=== PATIENT | male | born 1950 | race Caucasian/White ===

== ENCOUNTER 2020-06-28 06:34 | Inpatient (IN) ==
--- NOTE | 2020-06-08 10:08 | PAT Medication Instructions ---
Medication Instructions Date of Service June 08, 2020 Home Medications aspirin 81 mg PO QAM atorvastatin 40 mg PO QAM calcium carbonate-vitamin D3 [Calcium + D] 1 tab PO DAILY cyanocobalamin (vitamin B-12) [Vitamin B-12] 1,000 mcg SUBLINGUAL QAM dapagliflozin [Farxiga] 10 mg PO QAM famotidine 40 mg PO BID finasteride 5 mg PO QAM lisinopril 10 mg PO QAM melatonin 5 mg PO HS meloxicam 7.5 mg PO QAM methocarbamol 750 mg PO QID PRN metoprolol succinate 25 mg PO QAM multivitamin 1 cap PO QAM omega 7-ekn-doq-fish oil [Fish Oil] 1 cap PO QAM oxycodone-acetaminophen 1 tab PO Q8H PRN ranolazine 500 mg PO BID sitagliptin-metformin [Sepumet] 1 tab PO BID vitamin E 1,000 unit PO QAM zaleplon 5 mg PO HS ASK your surgeon for instructions meloxicam 7.5 mg PO QAM STOP taking 2 weeks before surgery omega 4-liw-rms-fish oil [Fish Oil] 1 cap PO QAM vitamin E 1,000 unit PO QAM DO NOT take the morning of surgery calcium carbonate-vitamin D3 [Calcium + D] 1 tab PO DAILY cyanocobalamin (vitamin B-12) [Vitamin B-12] 1,000 mcg SUBLINGUAL QAM dapagliflozin [Farxiga] 10 mg PO QAM lisinopril 10 mg PO QAM methocarbamol 750 mg PO QID PRN multivitamin 1 cap PO QAM sitagliptin-metformin [Sepumet] 1 tab PO BID Take morning of surgery With a small sip of water, OTHERWISE NOTHING TO EAT OR DRINK AFTER MIDNIGHT: aspirin 81 mg PO QAM atorvastatin 40 mg PO QAM famotidine 40 mg PO BID finasteride 5 mg PO QAM metoprolol succinate 25 mg PO QAM oxycodone-acetaminophen 1 tab PO Q8H PRN (okay to take up to 4 hours prior to surgery if needed) ranolazine 500 mg PO BID Take evening before surgery famotidine 40 mg PO BID melatonin 5 mg PO HS methocarbamol 750 mg PO QID PRN (if needed) oxycodone-acetaminophen 1 tab PO Q8H PRN (if needed) ranolazine 500 mg PO BID sitagliptin-metformin [Sepumet] 1 tab PO BID zaleplon 5 mg PO HS Other Notes If you have any questions please call us at [phone] or [phone] or [phone] or [phone]
--- NOTE | 2020-06-09 13:58 | Anesthesiology Consultation ---
Date of Service June 09, 2020 Assessment & Plan (1) Encounter for pre-operative examination: Chart Review Chart Review: Pending: Refer to Additional Notes / Consult section (06/13 ECHO with updated cardio clearance, PCP clearance 06/14, preop Covid testing ) and Patient seen in Pre Admission Testing Awaiting ECHO scheduled 06/13/20 and surgeon ordered PCP clearance scheduled 06/14/20. - Check BSG AM DOS Per PAT visit 06/09/2020, patient resides in [facility]. Travels to [facility] for medical appointments. Uses mask. No known Covid positive contacts or Covid related symptoms. Educated patient to follow up with surgeon's office regarding Covid testing. Educated on importance of self quarantining, social distancing and wearing mask in public both for the patient and household contacts. Patient seen by cardiology 06/07/2020 = patient seen for preop evaluation prior to orthopedic surgery. " Over the past 30 days, there has been no active cardiovascular conditions... Cardiovascular risk factors include ischemic heart disease." Patient does not have renal failure, diabetes, or congestive heart failure. Last echo was 2013. Will obtain updated echo prior to surgery. " Clinically patient has been doing very well. He is limited by his orthopedic condition. Otherwise he is able to perform activities at 4 METS level. Therefore do not recommend stress testing at this time." " If no significant abnormalities on echo, then patient should proceed with planned surgery as a low cardiovascular risk candidate with no further testing." Cardio states addendum will be added after echocardiogram. Teaching & Discussion Pre-Anesthesia Teaching/Discussion Notes: Instructed NPO after midnight before surgery,except medications with 15 cc of water. Medication instructions provided according to the PAT guidelines. History Surgery Operation Date: 06/28/20 07:45 Proposed Procedures p L2-L3 Decompression Fusion, L3-S1 Hardware Removal, Possible L2-S1 Reinstrumentation, Spinal Cord Monitoring - Matt Ojeda, Height/Weight Height: 5 ft 9 in Weight: 81.1 kg Allergies Allergy/AdvReac Type Severity Reaction Status Date / Time contrast dye Allergy Intermediate heart cath Uncoded 06/07/20 09:17 dye - rash/hives Medications Home Medications Medication Instructions Recorded Confirmed Last Taken aspirin 81 mg PO QAM 06/07/20 06/07/20 Unknown atorvastatin 40 mg PO QAM 06/07/20 06/07/20 Unknown calcium carbonate-vitamin D3 1 tab PO DAILY 06/07/20 06/07/20 Unknown [Calcium + D] cyanocobalamin (vitamin B-12) 1,000 mcg SUBLINGUAL QAM 06/07/20 06/07/20 Unknown [Vitamin B-12] dapagliflozin [Farxiga] 10 mg PO QAM 06/07/20 06/07/20 Unknown famotidine 40 mg PO BID 06/07/20 06/07/20 Unknown finasteride 5 mg PO QAM 06/07/20 06/07/20 Unknown lisinopril 10 mg PO QAM 06/07/20 06/07/20 Unknown melatonin 5 mg PO 06/07/20 06/07/20 Unknown meloxicam 7.5 mg PO QAM 06/07/20 06/07/20 Unknown methocarbamol 750 mg PO QID PRN [facility] 06/07/20 06/07/20 Unknown metoprolol succinate 25 mg PO QAM 06/07/20 06/07/20 Unknown multivitamin 1 cap PO QAM 06/07/20 06/07/20 Unknown omega 7-lth-ysj-fish oil [Fish Oil] 1 cap PO QAM 06/07/20 06/07/20 Unknown oxycodone-acetaminophen 1 tab PO Q8H PRN 06/07/20 06/07/20 Unknown ranolazine 500 mg PO BID 06/07/20 06/07/20 Unknown sitagliptin-metformin [Janumet] 1 tab PO BID 06/07/20 06/07/20 Unknown vitamin E 1,000 unit PO QAM 06/07/20 06/07/20 Unknown zaleplon 5 mg PO 06/07/20 06/07/20 Unknown Past Medical History Medical History (Updated 06/10/20 @ 08:49 by Tessie Khan, PA-C) CAD (coronary artery disease) S/p stent 2012 to LAD Diabetes mellitus, type 2 Well controlled and stable GERD (gastroesophageal reflux disease) Well controlled and stable Hyperlipidemia Hypertension Insomnia Myocardial infarction 1990 (pt unsure of details); 2012- had LAD stent placed Osteoarthritis Exercise / Class Metabolic Activity II 4-5 Yardwork/Stairs/Walk up hill (one flight of stairs- no chest pain or SOB- limited activity due to back pain ) Past Surgical History Surgical History (Updated 06/10/20 @ 08:49 by Tessie Khan PA-C) History of foot surgery left torn tendon History of heart artery stent in 2013; unknown if stent placed with 1990 [place] History of lumbar fusion History of trigger finger both hands Hx of appendectomy Hx of arthroscopic knee surgery x 2 Hx of cardiac cath Per Dr. Pace (cardio note)- cath 2008 (medical management), 2013 cath (LAD STEFANIE placed). Specifics unknown regarding 1990 [place] Hx of colonoscopy Hx of hand surgery x4 right hand and on thumb Hx of hand surgery left hand Hx of lumbar discectomy Hx of repair of right rotator cuff Hx of tonsillectomy Past Anesthesia History No Hx of Anesthesia Complications (with exception to one episode with shoulder surgery- woke up during surgery ) and No Family Hx of Anesthesia Complications History of PONV No Hx of PONV and No Hx of Motion Sickness Social History Smoking Status: Never smoker Do You Dip or Chew Tobacco: No Hx Alcohol Use: Yes alcohol intake frequency: holidays/special occasions only Hx Substance Use: No substance use type: does not use Review of Systems Patient denies chest pain, shortness of breath, dyspnea on exertion, cough, wheezing, palpitations. No hx of seizures, stroke, apnea/snoring. No hx of blood clots or blood transfusions Physical Exam Vital Signs VITALS BP 125/77 P 70 TEMP 98.3 SP02 96% RESP 16 Constitutional no acute distress ENMT Mouth: no TMJ clicking Thyromental Distance: > or= 3.5 Finger Breadths (3.5) Mallampati Class: I Crowns to molars Neck neck extension not limited Respiratory normal respiratory effort; no respiratory distress Auscultation: lungs clear to auscultation bilaterally; no wheezes Cardiovascular Rate/Rhythm: regular rate and regular rhythm Heart Sounds: no murmur Vessels: no carotid bruit Musculoskeletal Spine: no pain with cervical ROM Neurologic moves all extremities Psychiatric Orientation: alert Testing Laboratory Results 06/09/20 14:20 06/09/20 14:20 PT 10.7 Seconds (9.0-12.0) 06/09/20 14:20 INR 1.0 (0.9-1.1) 06/09/20 14:20 APTT 28.0 Seconds (21.0-31.0) 06/09/20 14:20 Urine Color Yellow 06/09/20 14:20 Urine Appearance Clear (Clear) 06/09/20 14:20 Urine pH 5.0 (4.5-7.5) 06/09/20 14:20 Ur Specific [place] 1.039 (1.000-1.030) H 06/09/20 14:20 Urine Protein Negative (Negative) 06/09/20 14:20 Urine Glucose (UA) 3+ (Negative) H 06/09/20 14:20 Urine Ketones Trace (Negative) H 06/09/20 14:20 Urine Nitrite Negative (Negative) 06/09/20 14:20 Ur Leukocyte Esterase Negative (Negative) 06/09/20 14:20 Blood Type O Positive 06/09/20 14:20 Antibody Screen NEGATIVE 06/09/20 14:20 Electrocardiogram Date: 06/09/20 SR with PACs at 67 bpm. Low voltage QRS. Chest X-Ray Date: 06/09/20 Findings: + NAD Atelectasis is noted at the left lung base. Stress Test Date: 12/29/15 Resting EF: 60% Resting LV Function: normal Resting RWMA: + none Resting EKG showed SR, borderline low voltage complexes, poor R wave progression. Exercise stress EKG negative for ischema. Exercise stress ECHO is positive for ischemia of a small area of the apicoinferoseptal wall at a good workload. Good functional status- exercised to 10 METs. MPHR= 89% With exercise there appears to be HK of the apicoinferoseptal wall. (cardio aware of stress test results in note) Cardiac Catheterization Date: 12/16/12 LAD 80%- PTCA and stenting done with STEFANIE- reduced to 0% stenosis. LM= angiographically normal but short vessel. LCX= 20% Ramus= 60% RCA= 20% EF= 55%. No RWMA.
--- NOTE | 2020-06-09 14:42 | XRay Report ---
TWO VIEW CHEST CLINICAL HISTORY: Preoperative examination. FINDINGS: PA and lateral chest radiographs are obtained. No prior studies are available for compariso n at the time of dictation. The cardiomediastinal silhouette is unremarkable. Atelectasis is noted a t the left lung base. The lungs and pleural spaces are otherwise clear. There is no pneumothorax. The bony thorax appears intact. IMPRESSION: No active disease in the chest. ACT 112: Negative or not required by law. Electronically signed by: Alcon Mccord M.D. 06/09/2020 2:41 PM
[2020-06-09 15:32] LABS: Basophils # (auto) 0.01 K/uL (0-0.2); Basophils % (auto) 0.1 %; Eosinophils # (auto) 0.27 K/uL (0-0.5); Eosinophils % (auto) 3.8 %; Hematocrit (blood only) 42.8 % (42-52); Hemoglobin 14.7 g/dL (14.0-18.0); Immature Granulocytes # (auto) 0.01 K/uL (0.00-0.02); Immature Granulocytes % (auto) 0.1 %; Lymphocytes # (auto) 2.41 K/uL (1.2-3.4); Lymphocytes % (auto) 34.1 %; Mean Corpuscular Hgb Conc 34.3 g/dL (32-36); Mean Platelet Volume 9.7 fL (7.4-10.4); Monocytes # (auto) 0.75 K/uL (0.11-0.59); Monocytes % (auto) 10.6 %; Neutrophils # (auto) 3.61 K/uL (1.4-6.5); Neutrophils % (auto) 51.3 %; Platelet Count 237 K/uL (130-400); RDW Coefficient of Variation 12.8 % (11.5-14.5); RDW Standard Deviation 43.8 fL (36.4-46.3); White Blood Count 7.06 K/uL (4.8-10.8)
[2020-06-09 15:38] LABS: Appearance Urine Clear (Clear); Bilirubin Urine Negative (Negative); Blood Urine Negative (Negative); Color Urine Yellow; Glucose Urine UA 3+ (Negative); Ketones Urine Trace (Negative); Leukocyte Esterase Urine Negative (Negative); Nitrite Urine Negative (Negative); Protein Urine Negative (Negative); Specific Gravity Urine 1.039 (1.000-1.030); Urobilinogen Urine Negative (Negative)
[2020-06-09 15:49] LABS: Prothrombin Time 10.7 Seconds (9.0-12.0)
[2020-06-09 16:02] LABS: BUN Creatinine Ratio 20.8 (10-20); Calcium 9.6 mg/dl (8.5-10.1); Creatinine Clr Calc Pharmacy 87.4 ml/min; Est GFR (African American) 106.1; Est GFR (Non-African American) 91.5; Potassium 4.6 mmol/L (3.5-5.1)
--- NOTE | 2020-06-09 19:06 | Electrocardiogram Report ---
Test Reason : Blood Pressure : / mmHG Vent. Rate : 067 BPM Atrial Rate : 067 BPM P-R Int : 164 ms QRS Dur : 080 ms QT Int : 414 ms P-R-T Axes : 035 033 053 degrees QTc Int : 437 ms Sinus rhythm with Premature atrial complexes Low voltage QRS Borderline ECG No previous ECGs available Confirmed by Lexx Abrams ([id number]) on 06/09/2020 7:06:05 PM Referred By: Matt Ojeda Confirmed By:Yo Abrams
[~2020-06-28 06:34] MED LIST: ACETAMINOPHEN 500 MG TAB PO SCH; CEFAZOLIN 2000MG 2,000 MG/15 ML SYR IV SCH; CeleBREX 200 MG CAP PO SCH; GABAPENTIN 300 MG CAP PO SCH; LR 15ML/HR IV SCH
[2020-06-28] MEDS ORDERED: PROPOFOL IV EMULSION 10 MG/ML 20 ML VIAL IV ONE (07:03)
[2020-06-28] MEDS ORDERED: ONDANSETRON INJ 2 MG/ML 2 ML VIAL ONE ×2 (07:03→08:10)
[2020-06-28] MEDS ORDERED: ROCURONIUM BROMIDE 10 MG/ML 5 ML VIAL IV ONE ×2 (07:03→08:48)
[2020-06-28] MEDS ORDERED: MIDAZOLAM HCL 1 MG/ML 2ML VIAL ONE (07:03)
[2020-06-28] MEDS ORDERED: LIDOCAINE HCL 2% 2 ML VIAL/AMP(20MG/ML) INFIL ONE (07:03)
[2020-06-28] MEDS ORDERED: DEXAMETHASONE SOD INJ 4 MG/ML VIAL ONE (07:03)
[2020-06-28] MEDS ORDERED: HYDROmorphone INJ 2 MG/ML SYR/VIAL ONE (07:03)
[2020-06-28] MEDS ORDERED: BACITRACIN INJ 50,000 UNIT VIAL ONE (07:12)
[2020-06-28] MEDS ORDERED: BUPIVACAINE/EPINEPHRINE 0.25% 1:200,000 30 ML VIAL ONE (07:12)
[2020-06-28] MEDS ORDERED: ALBUMIN HUMAN 5% 12.5 GM/250 ML VIAL IV ONE ×2 (07:14→07:35)
[2020-06-28] MEDS ORDERED: SUGAMMADEX SODIUM 200 MG/2 ML VIAL IV ONE (07:14)
[2020-06-28] MEDS ORDERED: ONDANSETRON INJ 2 MG/ML 2 ML VIAL IV PRN ×2 (07:18→11:39)
[2020-06-28] MEDS ORDERED: HYDROmorphone INJ 1 MG/ML SYRINGE IV PRN (07:18)
[2020-06-28] MEDS ORDERED: ATROPINE SULFATE 0.1 MG/ML 10ML SYR IV PRN (07:18)
[2020-06-28] MEDS ORDERED: ePHEDrine sulfate 50 MG/ML AMP IV PRN (07:18)
[2020-06-28] MEDS ORDERED: SODIUM CHLORIDE 0.9% 250 ML IV PRN (07:28)
--- NOTE | 2020-06-28 07:29 | History & Physical Bridge Note ---
Date of Service June 28, 2020 History & Physical Bridge Note I have examined the patient, reviewed the History & Physical and in the interval since the performance of the History & Physical I have noted the following changes of clinical significance: no changes noted
--- NOTE | 2020-06-28 07:30 | History & Physical Report ---
Date of Service June 28, 2020 Assessment & Plan (1) Neurogenic claudication due to lumbar spinal stenosis: Admission and Anticipated Discharge Date Admission Date: L2-L3 decompression fusion, L3-S1 hardware removal, possible L2- S1 re-instrumentation History of Present Illness Chief Complaint: Back and bilateral leg pain Primary Care Provider: Arias Peter MD This is a 69-year-old male who presents with chronic persistent back and leg pain. Failed extensive course of nonoperative care is here for surgical invention. Allergies Allergy/AdvReac Type Severity Reaction Status Date / Time contrast dye Allergy Intermediate heart cath Uncoded 06/28/20 06:54 dye - rash/hives Home Medications Home Medications Medication Instructions Recorded Confirmed Type aspirin 81 mg PO QAM 06/07/20 06/28/20 History atorvastatin 40 mg PO QAM 06/07/20 06/28/20 History calcium carbonate-vitamin D3 1 tab PO DAILY 06/07/20 06/28/20 History [Calcium + D] cyanocobalamin (vitamin B-12) 1,000 mcg SUBLINGUAL QAM 06/07/20 06/28/20 History [Vitamin B-12] dapagliflozin [Farxiga] 10 mg PO QAM 06/07/20 06/28/20 History famotidine 40 mg PO BID 06/07/20 06/28/20 History finasteride 5 mg PO QAM 06/07/20 06/28/20 History lisinopril 10 mg PO QAM 06/07/20 06/28/20 History melatonin 5 mg PO HS 06/07/20 06/28/20 History meloxicam 7.5 mg PO QAM 06/07/20 06/28/20 History methocarbamol 750 mg PO QID PRN MDD pa 06/07/20 06/28/20 History metoprolol succinate 25 mg PO QAM 06/07/20 06/28/20 History multivitamin 1 cap PO QAM 06/07/20 06/28/20 History omega 7-wkz-prn-fish oil [Fish Oil] 1 cap PO QAM 06/07/20 06/28/20 History oxycodone-acetaminophen 1 tab PO Q8H PRN 06/07/20 06/28/20 History ranolazine 500 mg PO BID 06/07/20 06/28/20 History sitagliptin-metformin [Janumet] 1 tab PO BID 06/07/20 06/28/20 History vitamin E 1,000 unit PO QAM 06/07/20 06/28/20 History zaleplon 5 mg PO HS 06/07/20 06/28/20 History Past Med/Surg History Medical History (Updated 06/28/20 @ 07:30 by Matt Ojeda, ) CAD (coronary artery disease) S/p stent 2013 to LAD Diabetes mellitus, type 2 Well controlled and stable GERD (gastroesophageal reflux disease) Well controlled and stable Hyperlipidemia Hypertension Insomnia Myocardial infarction 1990 (pt unsure of details); 2013- had LAD stent placed Osteoarthritis Surgical History History of foot surgery left torn tendon History of heart artery stent in 2012; unknown if stent placed with 1990 [place] History of lumbar fusion History of trigger finger both hands Hx of appendectomy Hx of arthroscopic knee surgery x 2 Hx of cardiac cath Per Dr. Pace (cardio note)- cath 2008 (medical management), 2012 cath (LAD STEFANIE placed). Specifics unknown regarding 1990 [place] Hx of colonoscopy Hx of hand surgery x4 right hand and on thumb Hx of hand surgery left hand Hx of lumbar discectomy Hx of repair of right rotator cuff Hx of tonsillectomy Social History Smoking Status: Never smoker Second Hand Exposure: No; Do You Dip or Chew Tobacco: No; Tobacco Cessation Education Requested by Patient: No Hx Alcohol Use: Yes Hx Substance Use: No Preferred Language: Azeri Communication Ability: Effective Landscape Manager Required: No Beliefs That Will Affect Care: None Current Living Situation: Family Current Living Situation Comment: brother ocas Other Information That Helps Us Care for You: No Feels Safe at Home: Yes Safety Concerns: Feels Safe At This Time Assistive Devices: Glasses Physical Exam Physical Exam: Patient is alert and oriented neurologically intact. Heart regular rate and rhythm. Lungs clear to auscultation. Results & Data ([facility]) Vital Signs (Past 12 Hours) Vital Signs Temp Pulse Resp BP Pulse Ox 06/28/20 06:55 36.8 C 80 16 140/79 98
[2020-06-28] MEDS ORDERED: ePHEDrine sulfate 50 MG/ML SYR ONE (08:39)
[2020-06-28] MEDS ORDERED: PHENYLEPHRINE 100MCG/ML 5ML SYR ONE (08:44)
[2020-06-28 09:50] LABS: Basophils # (auto) 0.01 K/uL (0-0.2); Basophils % (auto) 0.1 %; Eosinophils # (auto) 0.13 K/uL (0-0.5); Eosinophils % (auto) 1.2 %; Hematocrit (blood only) 33.8 % (42-52); Hemoglobin 11.5 g/dL (14.0-18.0); Immature Granulocytes # (auto) 0.02 K/uL (0.00-0.02); Immature Granulocytes % (auto) 0.2 %; Lymphocytes # (auto) 2.01 K/uL (1.2-3.4); Lymphocytes % (auto) 19.2 %; Mean Corpuscular Hemoglobin 31.3 pg (25-34); Mean Corpuscular Volume 91.8 fL (80-100); Monocytes # (auto) 0.46 K/uL (0.11-0.59); Monocytes % (auto) 4.4 %; Neutrophils # (auto) 7.82 K/uL (1.4-6.5); Neutrophils % (auto) 74.9 %; Platelet Count 204 K/uL (130-400); RDW Coefficient of Variation 12.5 % (11.5-14.5); RDW Standard Deviation 42.5 fL (36.4-46.3); Red Blood Count 3.68 M/uL (4.7-6.1); White Blood Count 10.45 K/uL (4.8-10.8)
[2020-06-28] MEDS ORDERED: FLOSEAL HEMOSTATIC MATRIX 10ML TOP ONE (09:58)
--- NOTE | 2020-06-28 10:18 | Operative Report ---
Post Operative Report Pre & Post Diagnosis Operation Date: 06/28/20 07:45 Pre-Op Diagnosis: Neurogenic claudication due to lumbar spinal stenosis Post-Op Diagnosis: Neurogenic claudication due to lumbar spinal stenosis I identified the patient and participated in the time-out.: Yes Procedure Operation Date: 06/28/20 07:45 Actual Procedures #1 removal of posterior segmental instrumentation L3-S1. #2 exploration of fusion L3-S1. #3 lumbar decompression with bilateral medial facet foraminotomies L1-2 and L2-3. #4 posterior spinal fusion L2-3. #5 placed a posterior instrumentation L2-3 L3-4. #6 interbody fusion L2-3. #7 placed a peek cage 11 x 26 mm L2-3. #8 placement locally harvested morselized autograft in the posterior gutters. #9 placement of his collagen sponge by Master graft in the posterior lateral gutters and osteopenia but a space. Surgeon Matt Ojeda, DO Proof Operator Daren Foster Estimated Blood Loss 1,100 Findings Consistent with Post-Op Diagnosis Specimens None Indications This is a 69-year-old male who presents with vomiting diagnosis after failing course of nonoperative care elected undergo the above-mentioned procedure. Description of Procedure Patient met with identified informed consent obtained. Patient was then taken to the operative suite underwent patient placed in the prone position on Tobin table on top of the Vinicius frame. All bony prominences well-padded I suspected to ensure no external pressure placed upon the bed this point the lumbar spine is prepped and draped in a sterile fashion. Sharp dissection with the assistance of a cartilage from down to exposing the lamina and transverse processes of L2 and the instrumentation at L3-L4-L5 and S1 levels bilaterally. Then proceeded move the hardware bilaterally explored the fusion mass noted to be mature and intact. I did retain the left S1 pedicle screw as it was unable to be removed without greater bony destruction. I then performed a complete laminectomy of L2 partial laminectomy of L1 from a caudal cephalad fashion including bilateral medial facetectomy and foraminotomies addressing severe spinal stenosis. Pedicle screw was then placed in L2-L3-L4 bilaterally with assistance of fluoroscopy and process miguelina placed. Bilateral transfemoral approach and left the discectomy was performed and patient could do subcortical bone and a 11 x 26 mm cage filled with osteoma graft optimization. Rods and locked in accommodation bilaterally. The transverse processes of L2-L3-L4 producing cortical bleeding bone. Infuse collagen sponge mass graft local autograft was placed in the posterior gutters. 15 round BETTY drain inserted. The incision was then closed with 1 Vicryl fascia 2-0 Vicryl subcutaneously and 4 Monocryl for fascial closure. Steri-Strips dressings placed. Patient will continue to PACU stable condition. Please note spinal cord monitoring was utilized at the procedure no changes noted. Kristi Foster was present throughout the entire surgery and all the patient positioning complex portions of the surgery and final skin closure. I attest to the content of the Intraoperative Record and any orders documented therein. Any exceptions are noted below.
--- NOTE | 2020-06-28 10:52 | Fluoroscopy Report ---
FL lumbar spine 2-3V CLINICAL HISTORY: L2-L3 DECOMP/FUSION L3-S1 REMOVAL COMPARISON STUDY: FLUOROSCOPY TIME: 15 seconds. NUMBER OF FLUOROSCOPIC IMAGES: 2 FINDINGS: 2 intraoperative fluoroscopic spot images are provided for interpretation. These reveal nilam dence of an L2-3 discectomy and interbody fusion. There is also evidence for an L4-5 discectomy and i nterbody fusion. There is evidence for an L2-L4 fusion with posterior pedicle screws and rods. An ini tial lateral view, a metallic cross link hardware pieces visualized. This was apparently removed afte r the radiograph was taken. IMPRESSION: Intraoperative fluoroscopic spot images demonstrating an L2-4 spinal decompression and f usion. ACT 112: Negative or not required by law. Electronically signed by: Kwame Whelan M.D. 06/28/2020 10:51 AM
[2020-06-28] MEDS: fentaNYL citrate 100 MCG/2 ML VIAL IV PRN ×3 (11:00→11:10)
[2020-06-28 11:01] LABS: Basophils # (auto) 0.01 K/uL (0-0.2); Basophils % (auto) 0.1 %; Eosinophils # (auto) 0.05 K/uL (0-0.5); Eosinophils % (auto) 0.5 %; Hematocrit (blood only) 34.5 % (42-52); Hemoglobin 11.6 g/dL (14.0-18.0); Immature Granulocytes # (auto) 0.09 K/uL (0.00-0.02); Immature Granulocytes % (auto) 0.9 %; Lymphocytes # (auto) 1.31 K/uL (1.2-3.4); Lymphocytes % (auto) 12.5 %; Mean Corpuscular Volume 92.2 fL (80-100); Mean Platelet Volume 9.1 fL (7.4-10.4); Monocytes # (auto) 0.18 K/uL (0.11-0.59); Monocytes % (auto) 1.7 %; Neutrophils # (auto) 8.88 K/uL (1.4-6.5); Neutrophils % (auto) 84.3 %; Platelet Count 209 K/uL (130-400); RDW Coefficient of Variation 12.5 % (11.5-14.5); RDW Standard Deviation 42.7 fL (36.4-46.3); Red Blood Count 3.74 M/uL (4.7-6.1); White Blood Count 10.52 K/uL (4.8-10.8)
--- NOTE | 2020-06-28 11:01 | Anesthesiology Progress Note ---
Date of Service June 28, 2020 Anesthesia Post Procedure Vital Signs Vital Signs: Temp Pulse Pulse Resp BP BP Pulse Ox 06/28/20 10:55 89 12 135/80 99 06/28/20 10:45 87 13 129/77 99 06/28/20 10:36 36.9 C 91 H 10 L 141/80 H 98 06/28/20 06:55 36.8 C 80 16 140/79 98 Pain Intensity Lower Back: Pain Intensity: 4 Transfer of Care Handoff Completed per policy Notes Mental Status: alert / awake / arousable and participated in evaluation Patient Amnestic to Procedure: Yes Nausea / Vomiting: adequately controlled Pain: adequately controlled Airway Patency, RR, SpO2: stable & adequate BP & HR: stable & adequate Hydration State: stable & adequate Anesthetic Complications: no major complications apparent and Pt Satisfied with anesthetic care
[2020-06-28 11:09] LABS: Mean Corpuscular Hgb Conc 33.6 g/dL (32-36)
[2020-06-28] MEDS ORDERED: MAGNESIUM HYDROXIDE SUSP 30 ML UDC PO PRN (11:39)
[2020-06-28] MEDS ORDERED: HYDROmorphone INJ 0.5 MG/0.5 ML SYR IV PRN (11:39)
[2020-06-28] MEDS ORDERED: DO NOT ADMINISTER PNEUMOCOCCAL VACCINE PRN (11:39)
[2020-06-28] MEDS ORDERED: FAMOTIDINE 20 MG TAB PO PRN (11:39)
[2020-06-28] MEDS ORDERED: ACETAMINOPHEN 500 MG TAB PO PRN (11:39)
[2020-06-28] MEDS ORDERED: METOCLOPRAMIDE HCL INJ 5 MG/ML 2 ML VIAL IV PRN (11:39)
[2020-06-28] MEDS ORDERED: bisacodyL 10 MG SUPP PR PRN (11:39)
[2020-06-28] MEDS ORDERED: TRAMADOL HCL 50 MG TABLET PO PRN (11:39)
[2020-06-28] MEDS ORDERED: SOD PHOSPHATE/SOD BIPHOSPHATE ENEMA 132 ML BTL PR PRN (11:39)
[2020-06-28] MEDS ORDERED: ACETAMINOPHEN 1,000 MG/100 ML VIAL IV PRN (11:39)
[2020-06-28] MEDS ORDERED: METHOCARBAMOL 750 MG TABLET PO PRN (11:39)
[2020-06-28] MEDS ORDERED: ONDANSETRON 4 MG OD TAB PO PRN (11:39)
[2020-06-28] MEDS ORDERED: NALOXONE HCL 0.4 MG/1 ML VIAL/CARP IV PRN (11:39)
[2020-06-28] MEDS ORDERED: DO NOT ADMINISTER FLU VACCINE PRN (11:39)
[2020-06-28] MEDS ORDERED: ALUMINUM/MAGNESIUM SUSP 30 ML UDC PO PRN (11:39)
[2020-06-28] MEDS ORDERED: PROMETHAZINE HCL 12.5 MG in SODIUM CHLORIDE 0.9% 50 ML IV PRN (11:39)
[2020-06-28] MEDS ORDERED: LORazepam 0.5 MG/1 ML VIAL IV PRN (11:39)
[2020-06-28] MEDS ORDERED: LORazepam 0.5 MG TAB PO PRN (11:39)
[2020-06-28] MEDS ORDERED: GLUCOSE 40% GEL 15 GM TUBE PO PRN (11:57)
[2020-06-28] MEDS ORDERED: GLUCAGON FOR INJ 1 MG VIAL SQ PRN (11:57)
[2020-06-28] MEDS ORDERED: GLUCOSE 10 TABS/TUBE PO PRN (11:57)
[2020-06-28] MEDS ORDERED: DEXTROSE 50% 50 ML SYRINGE IV PRN (11:57)
[2020-06-28] MEDS ORDERED: CARBOHYDRATES FOR HYPOGLYCEMIA PO PRN (11:57)
[2020-06-28] MEDS ORDERED: PHARMACY GLYCEMIC MGMT CONSULT PRN (12:02)
[2020-06-28] MEDS ORDERED: HYDROmorphone INJ 1 MG/ML SYRINGE ONE (12:41)
[2020-06-28] MEDS: SODIUM CHLORIDE 0.9% 1000ML 1,000 ML IV SCH ×2 (12:42→20:13)
[2020-06-28] MEDS ORDERED: INSULIN HUMAN NPH SC ONE (13:00)
--- NOTE | 2020-06-28 13:26 | Hospitalist Consultation ---
Date of Consultation June 28, 2020 Assessment & Plan (1) S/P spinal surgery: This is a 69-year-old male with PMH of hypertension, CAD, HLD, BPH and other medical problems listed below who is POD#0 s/p L2L3 lumbar decompression and fusion with interbody cage by Dr. Ojeda. -POD#0 s/p L2L3 lumbar decompression and fusion with interbody cage by Dr. Ojeda -Pt is doing well post-operatively -Per ortho for pain control, wound care, anticoagulation and activities -Continue incentive spirometry, PT/OT when appropriate (2) Acute blood loss anemia: Significant EBL of 1,100ml recorded. Preop hemoglobin of 14.7 with postop hemoglobin 11.5 -Denies any lightheadedness, visual changes, chest pain or palpitations at this time. BP 98/66 -monitor closely, fall precautions -Increased IV fluid rate 125 ml/hr -Repeat H&H at 1500 -Type and crossed with 2 units PRBCs held. Plan to transfuse for hemoglobin <8 (3) CAD (coronary artery disease): Stable. No chest pain. Preop 2D echo on 06/13/2028 showed normal left ventricular systolic function with preserved EF of 60%. Continue aspirin, statin and metoprolol succinate with hold parameters (4) Hypertension: Hypotensive in setting of significant blood loss anemia. BP currently 98/66 -Plan to hold lisinopril tomorrow morning. Continue metoprolol succinate with hold parameters (5) Hyperlipidemia: Continue statin (6) Diabetes mellitus, type II: Unknown a1c - pending for tomorrow AM -pt reports A1c below 7 on oral meds -Hold home agents. Post op hgb >200 -Glycemic consult placed -BSG AC HS (7) GERD (gastroesophageal reflux disease): Continue PPI (8) Insomnia: Holding Zaleplon while receiving pain medication post operatively PCP: [place] Dispo: Per primary service Patient seen in collaboration with Dr. Coleman. Please see addendum. Thank you for this consultation. We will follow the patient with you during their hospital stay. You can reach a member of the [facility] 22/04 via pager @ [phone]. Supervising Physician Co-Signing Physician Notes Patient was seen and examined by me, care coordinated with Soila Phipps PA-C. Please see her note above for further details. Pt is 69 y/o male hx of DM type 2 (per pt, A1c below 7 on oral meds), hypertension, CAD, HLD, BPH and other medical problems who is POD#0 s/p L2L3 lumbar decompression and fusion with interbody cage by Dr. Ojeda. Patient is feeling well postoperatively, except for some mild surgical site pain. Denies any paresthesias or pain in the lower extremities. Denies any fever or chills. No lightheadedness, chest pain, palpitations, shortness of breath, or dizziness. Rios catheter is draining urine. Patient is currently lying in bed, in no acute distress. He is alert and oriented and answering questions appropriately. Lung sounds are clear to auscultation bilaterally, no wheezing rhonchi or crackles noted. Heart sounds regular, no murmur noted. Abdomen is soft, nontender, nondistended, positive bowel sounds. Patient has no sensory loss, moves extremities spontaneously. Continue to closely monitor blood pressure and heart rate, repeat H&H ordered. Continue IV fluids 125/h, depending on H&H, will decide if blood transfusion needed. We will continue to closely monitor. Lois Coleman MD History of Present Illness Reason for Consultation: Postop medical management Attending Physician: Matt Ojeda DO History of Present Illness This is a 69-year-old male with PMH of hypertension, CAD, HLD, BPH and other medical problems listed below who is POD#0 s/p L2L3 lumbar decompression and fusion with interbody cage by Dr. Ojeda. Patient is feeling well postoperatively. Has some mild surgical site pain. Denies any paresthesias or pain in the lower extremities. Denies any fever or chills. No visual changes, lightheadedness, chest pain, palpitations or shortness of breath. No nausea vomiting or abdominal pain. Has Rios catheter in draining urine. Last bowel movement was yesterday. PCP is Dr. Peter. 2D echo on 06/13/2028 showed normal left ventricular systolic function with preserved EF of 60%. Allergies Allergy/AdvReac Type Severity Reaction Status Date / Time Iodinated Contrast Media Allergy Intermediate Hives Verified 06/28/20 12:16 Home Medications Home Medications Medication Instructions Recorded Confirmed Type aspirin 81 mg PO QAM 06/07/20 06/28/20 History atorvastatin 40 mg PO QAM 06/07/20 06/28/20 History calcium carbonate-vitamin D3 1 tab PO DAILY 06/07/20 06/28/20 History [Calcium + D] cyanocobalamin (vitamin B-12) 1,000 mcg SUBLINGUAL QAM 06/07/20 06/28/20 History [Vitamin B-12] dapagliflozin [Farxiga] 10 mg PO QAM 06/07/20 06/28/20 History famotidine 40 mg PO BID 06/07/20 06/28/20 History finasteride 5 mg PO QAM 06/07/20 06/28/20 History lisinopril 10 mg PO QAM 06/07/20 06/28/20 History melatonin 5 mg PO HS 06/07/20 06/28/20 History meloxicam 7.5 mg PO QAM 06/07/20 06/28/20 History methocarbamol 750 mg PO QID PRN [facility] 06/07/20 06/28/20 History metoprolol succinate 25 mg PO QAM 06/07/20 06/28/20 History multivitamin 1 cap PO QAM 06/07/20 06/28/20 History omega 5-dcc-dxw-fish oil [Fish Oil] 1 cap PO QAM 06/07/20 06/28/20 History oxycodone-acetaminophen 1 tab PO Q8H PRN 06/07/20 06/28/20 History ranolazine 500 mg PO BID 06/07/20 06/28/20 History sitagliptin-metformin [Janumet] 1 tab PO BID 06/07/20 06/28/20 History vitamin E 1,000 unit PO QAM 06/07/20 06/28/20 History zaleplon 5 mg PO HS 06/07/20 06/28/20 History Patient History Medical History (Updated 06/28/20 @ 15:02 by Soila Phipps PA-C) CAD (coronary artery disease) S/p stent 2012 to LAD Diabetes mellitus, type II GERD (gastroesophageal reflux disease) Hyperlipidemia Hypertension Insomnia Myocardial infarction 1990 (pt unsure of details); 2012- had LAD stent placed Osteoarthritis Surgical History (Updated 06/28/20 @ 15:02 by Soila Phipps PA-C) History of foot surgery left torn tendon History of heart artery stent in 2012; unknown if stent placed with 1990 SC History of lumbar fusion History of trigger finger both hands Hx of appendectomy Hx of arthroscopic knee surgery x 2 Hx of cardiac cath Per Dr. Pace (cardio note)- cath 2008 (medical management), 2012 cath (LAD STEFANIE placed). Specifics unknown regarding 1990 SC Hx of colonoscopy Hx of hand surgery x4 right hand and on thumb Hx of hand surgery left hand Hx of lumbar discectomy Hx of repair of right rotator cuff Hx of tonsillectomy Family History Other Heart disease Hypertension Social History Smoking Status: Never smoker Second Hand Exposure: No; Do You Dip or Chew Tobacco: No; Tobacco Cessation Education Requested by Patient: No Hx Alcohol Use: Yes Hx Substance Use: No Preferred Language: Israeli Communication Ability: Effective Port Purser Required: No Beliefs That Will Affect Care: None marital status: Single Current Living Situation: Family Current Living Situation Comment: brother ocas Other Information That Helps Us Care for You: No Feels Safe at Home: Yes Safety Concerns: Feels Safe At This Time Assistive Devices: Glasses Review of Systems Review of Systems: At least ten systems reviewed and negative except as noted in the HPI. Physical Exam Physical Exam: General Appearance: WD/WN, vitals as above, NAD, sitting up in bed, pleasant, conversing easily Head: normocephalic, atraumatic Eyes: normal inspection, PERRL, conjunctivae normal, anicteric sclerae ENT: external ear and nose normal, oropharynx normal Neck: normal visual inspection, trachea midline, no thyromegaly Respiratory: normal respiratory effort, lungs clear to auscultation, no wheeze, rales, rhonchi Cardiovascular: regular rate, rhythm, no murmur, normal peripheral pulses, no BLE edema Chest: normal inspection of chest Abdomen/GI: normal bowel sounds, soft, nontender, no hepatosplenomegaly Extremities/Musculoskeletal: + Lumbosacral dressing c/d/i. BETTY drain visualized. No cyanosis or clubbing, extremities motor strength 5/5 Neurologic: PERRL, CN's II-XI intact bilaterally and moves all extremities Psychiatric: A+Ox3, euthymic affect Skin: no rashes, normal color, warm/dry Results & Data Results & Data ([facility]) Vital Signs (Past 12 Hours) Vital Signs Temp Pulse Pulse Resp BP BP Pulse Ox 06/28/20 12:45 36.6 C 86 16 109/70 97 06/28/20 12:10 36.5 C 85 16 108/70 96 06/28/20 11:40 36.9 C 84 15 117/72 96 06/28/20 11:15 36.7 C 84 14 138/75 96 06/28/20 11:05 85 15 136/75 96 06/28/20 10:55 89 12 135/80 99 06/28/20 10:45 87 13 129/77 99 06/28/20 10:36 36.9 C 91 H 10 L 141/80 H 98 06/28/20 06:55 36.8 C 80 16 140/79 98 Laboratory Results Short CBC 06/28/20 06/28/20 Range/Units 09:40 10:43 WBC 10.45 10.52 (4.8-10.8) K/uL Hgb 11.5 L 11.6 L (14.0-18.0) g/dL Hct 33.8 L 34.5 L (42-52) % Plt Count 204 209 (130-400) K/uL
--- NOTE | 2020-06-28 13:55 | Pharmacy Report ---
Glycemic Control Consultation - Date of Service June 28, 2020 - Scope Scope: Glycemic Pharmacist consulted for glycemic control and to write orders per [facility] inpatient glycemic control protocol. - Objective Weight: 81.1 kg Accuchecks BSG (last 24hrs): 06/28/20 06/28/20 06/28/20 06:54 10:40 11:40 POC Glucose 136 H 176 H 218 H - Recent Pertinent Medications Outpatient Anti-diabetic Regimen: * FARXIGA 10 MG DAILY * JANUMET 1 TAB BID Risk Factors for Insulin Resistance: * Steroids: DEXAMETHASONE 8 MG IV INTRAOP * Recent Surgery: POD 0 FOR LUMABAR SURGERY * Diet: T2DM- CLEAR LIQUID - Assessment & Plan Assessment & Plan: ASSESSMENT: * Mr Cid is a 69 y/o M with PMH of T2DM (unknown control - on 3 oral medications) who presents for lumbar surgery. Fasting BSG was 136 mg/dL. Patient received IV dexamethasone 8 mg in OR * Provide 0.4 units/kg of NPH or 30 units to cover for steroid hyperglycemia. Weight-based stress of 3 Novolog ordered along with overnight checks. * Pt is maintained on oral antidiabetic agents as an outpatient * Oral agents are not recommended for inpatient use d/t drug interactions, changing PO intake, and difficulty titrating for acute hyper/hypoglycemia. ADA recommends re-initiating outpatient oral agents 1-2 days prior to discharge if/when appropriate if they were held on admission. * ADA & AACE recommend a goal blood sugar range 140-180 mg/dl for the majority of critically ill & non-critically ill patients. However, more stringent targets may be selected in individual cases. Will utilize more stringent goal of 110-140mg/dl based on patient age & comorbidities. Additionally, tighter glycemic control is warranted to facilitate wound healing. PLAN FOR INPATIENT GLYCEMIC CONTROL: * Holding outpatient oral diabetes medications - plan to restart POD 1 or 2 * Basal insulin * NPH 30 units SQ x1 * Bolus insulin * NovoLog per scale ACHS or Q6hrs while NPO * Goal Range: Low 110 mg/dL - High 140 mg/dL * Correction Factor: 20 mg/dL/unit * Nutritional / Prandial insulin per carb ratio of 1 unit per 7 grams CHO consumed * Please note that the plan above was derived based on current level of insulin resistance and hospital stress. These recommendations are appropriate for inpatient admission only. Plan of care upon discharge will need to be reassessed to avoid potential outpatient hypo/hyperglycemia. Thank you.
[2020-06-28] MEDS: INSULIN ASPART 100 UNITS/ML 3 ML PEN SC SCH ×3 (14:45→21:03)
[2020-06-28] MEDS: OXYCODONE HCL IR 5 MG TAB (IMMEDIATE RELEASE) PO PRN ×2 (14:54→23:19)
[2020-06-28] MEDS: HYDROmorphone INJ 1 MG/ML SYRINGE IV PRN ×2 (15:47→20:38)
[2020-06-28] MEDS: CEFAZOLIN 2000MG 2,000 MG/15 ML SYR IV SCH ×2 (15:50→23:19)
[2020-06-28 17:28] LABS: Hematocrit (blood only) 31.8 % (42-52); Hemoglobin 10.8 g/dL (14.0-18.0)
[2020-06-28] MEDS: RANOLAZINE 500 MG ER TAB PO SCH (20:14)
[2020-06-28] MEDS: FAMOTIDINE 40 MG TABLET PO SCH (20:14)
[2020-06-28] MEDS: DOCUSATE SODIUM/SENNA 50/8.6MG TAB PO SCH (20:14)
[2020-06-28] MEDS ORDERED: ZALEPLON 5 MG CAPSULE PO SCH (21:00)
[2020-06-28] MEDS ORDERED: NON-FORMULARY MEDICATION (Sitagliptin-Metformin [Janumet] 1 TAB) PO SCH (21:00)
[2020-06-28] MEDS: MELATONIN 3 MG TAB PO PRN (23:20)
[2020-06-29] MEDS: INSULIN ASPART 100 UNITS/ML 3 ML PEN SC SCH ×6 (00:33→21:12)
[2020-06-29] MEDS: HYDROmorphone INJ 1 MG/ML SYRINGE IV PRN (03:45)
[2020-06-29] MEDS: POLYETHYLENE (MIRALAX) 17 GM PACK PO SCH ×4 (05:14→23:44)
[2020-06-29 05:43] LABS: Basophils # (auto) 0.01 K/uL (0-0.2); Basophils % (auto) 0.1 %; Eosinophils # (auto) 0.05 K/uL (0-0.5); Eosinophils % (auto) 0.4 %; Hematocrit (blood only) 26.8 % (42-52); Hemoglobin 8.9 g/dL (14.0-18.0); Immature Granulocytes # (auto) 0.03 K/uL (0.00-0.02); Immature Granulocytes % (auto) 0.3 %; Lymphocytes % (auto) 18.7 %; Mean Corpuscular Hemoglobin 31.2 pg (25-34); Mean Corpuscular Hgb Conc 33.2 g/dL (32-36); Mean Platelet Volume 8.7 fL (7.4-10.4); Monocytes # (auto) 1.21 K/uL (0.11-0.59); Monocytes % (auto) 10.3 %; Neutrophils # (auto) 8.25 K/uL (1.4-6.5); Neutrophils % (auto) 70.2 %; Platelet Count 208 K/uL (130-400); RDW Coefficient of Variation 12.6 % (11.5-14.5); RDW Standard Deviation 43.4 fL (36.4-46.3); Red Blood Count 2.85 M/uL (4.7-6.1); White Blood Count 11.75 K/uL (4.8-10.8)
[2020-06-29 06:11] LABS: Calcium 8.3 mg/dl (8.5-10.1); Creatinine Clr Calc Pharmacy 85.3 ml/min; Est GFR (Non-African American) 90.6; Potassium 3.8 mmol/L (3.5-5.1)
[2020-06-29 06:28] LABS: Estimated Average Glucose 128 mg/dl; Hemoglobin A1C 6.1 % (4.5-5.6)
[2020-06-29] MEDS: TOCOPHERYL, DL-ALPHA 400 UNITS CAP PO SCH (08:35)
[2020-06-29] MEDS: FAMOTIDINE 40 MG TABLET PO SCH ×2 (08:35→21:12)
[2020-06-29] MEDS: RANOLAZINE 500 MG ER TAB PO SCH ×2 (08:35→21:12)
[2020-06-29] MEDS: CALCIUM 600MG + VIT D 400 IU TAB PO SCH (08:35)
[2020-06-29] MEDS: MULTIVITAMIN TAB PO SCH (08:36)
[2020-06-29] MEDS: ATORVASTATIN 40 MG TAB PO SCH (08:36)
[2020-06-29] MEDS: FINASTERIDE 5 MG TAB PO SCH (08:36)
[2020-06-29] MEDS: CYANOCOBALAMIN 500 MCG TABLET (VITAMIN B-12) PO SCH (08:36)
[2020-06-29] MEDS: ASPIRIN 81 MG ECTAB PO SCH (08:36)
[2020-06-29] MEDS: SITAGLIPTIN PHOSPHATE 25 MG TAB PO SCH ×2 (08:37→17:49)
[2020-06-29] MEDS: METOPROLOL SUCC 25MG EXT REL TAB PO SCH (08:39)
[2020-06-29] MEDS ORDERED: lisinopriL 10 MG TAB PO SCH (09:00)
[2020-06-29] MEDS ORDERED: NON-FORMULARY MEDICATION (Dapagliflozin [Farxiga] 10 MG) PO SCH (09:00)
--- NOTE | 2020-06-29 09:55 | Orthopedic Progress Note ---
Date of Service June 29, 2020 Assessment & Plan (1) Neurogenic claudication due to lumbar spinal stenosis: Admission and Anticipated Discharge Date Admission Date: June 28, 2020 This time we will continue with physical therapy monitor his BETTY operatively discharge home the latter half this week. Subjective Patient complaining mostly of back pain leg symptoms improved. Physical Exam Physical Exam: Patient is alert and oriented inspection strength testing appears comfortable. Results & Data ([facility]) Vital Signs (Past 12 Hours) Vital Signs Temp Pulse Resp BP BP Pulse Ox 06/29/20 08:35 80 107/66 06/29/20 07:22 36.6 C 68 16 93/53 L 95 06/29/20 03:58 37 C 70 18 101/61 94 06/28/20 23:10 36.9 C 74 20 105/65 95
[2020-06-29] MEDS: OXYCODONE HCL IR 5 MG TAB (IMMEDIATE RELEASE) PO PRN ×2 (10:03→14:02)
--- NOTE | 2020-06-29 14:17 | Pharmacy Report ---
Glycemic Control Progress Note - Date of Service June 29, 2020 - Scope Glycemic Pharmacist consulted for glycemic control to write orders per [facility] inpatient glycemic control protocol. - Objective Accuchecks BSG(last 24 hours):: 06/28/20 06/28/20 06/28/20 17:36 20:36 23:45 Glucose POC Glucose 191 H 184 H 137 H 06/29/20 06/29/20 06/29/20 03:38 05:27 08:14 Glucose 125 H POC Glucose 146 H 143 H 06/29/20 12:02 Glucose POC Glucose 194 H HbA1c:: Hemoglobin A1c 6.1 % (4.5-5.6) H 06/29/20 05:27 - Recent Pertinent Medications The patient is currently receiving: * Basal insulin: NPH 30 units SQ x 1 * Correctional Insulin: Novolog Correction per scale ACHS Goal Range: Low 110 mg/dL - High 140 mg/dL Correction Factor: 20 mg/dL/unit * Prandial insulin: Per carb ratio of 1 unit per 7 grams CHO consumed - Outpatient Anti-Diabetic Meds Farxiga 10 mg qAM Janumet 1 tab BID - Assessment & Plan ASSESSMENT: * See progress note from 06/28/20 for more background info, in short: * Pt receiving SQ basal bolus insulin regimen for hyperglycemia secondary to baseline DM (outpatient regimen on hold). Patient is POD 1 for lumbar surgery. He received dexamethasone 8 mg IV intraoperatively. He is now ordered dexamethasone 8 mg IV daily starting tomorrow. * Patient is currently receiving an average of 40 units of insulin per day * 30 units of basal insulin * 10 units of prandial/correctional insulin * BSGs ranging 136 - 218 mg/dl over the past 24hrs * Changes needed to insulin regimen: * AM Fasting BSG = 143 mg/dl. This is in goal range for patient based on inpatient targets and co-morbidities. Will not give basal today since patient appears to be maintaining BSGs by himself. Will provide NPH 30 units starting tomorrow with dexamethasone. * Post-prandial BSGs are moderately controlled. Since no basal was given today will tighten carbohydrate ratio. * Total daily dose = ? units. Will change based upon steroids given. * Additional notes / comments: restart metformin and Januvia PLAN FOR INPATIENT GLYCEMIC CONTROL: * Continuing NPH 30 units SQ daily starting 10/1/20 * Continuing correction factor of 20 mg/dl/unit * TIGHTEN carb ratio to 1 unit per 6 grams CHO consumed * Continuing goal range of Low 110 mg/dL - High 140 mg/dL RECOMMENDATIONS FOR DISCHARGE: * Patient's HbA1C is well controlled * Goal HBA1C = < 7% * current HbA1C = 6.1% * Recommend continuing home regimen. Thank you.
--- NOTE | 2020-06-29 14:45 | Hospitalist Progress Note ---
Date of Service June 29, 2020 Assessment & Plan (1) S/P spinal surgery: This is a 69-year-old male with PMH of hypertension, CAD, HLD, BPH and other medical problems listed below who is POD#0 s/p L2L3 lumbar decompression and fusion with interbody cage by Dr. Ojeda. -POD#1 s/p L2L3 lumbar decompression and fusion with interbody cage by Dr. Ojeda -Per ortho for pain control, wound care, anticoagulation and activities -Continue incentive spirometry -Complains of minimal pain at the back (2) Acute blood loss anemia: Significant EBL of 1,100ml recorded. Preop hemoglobin of 14.7 with postop hemoglobin 11.5 -Denies any lightheadedness, visual changes, chest pain or palpitations at this time. BP 98/66 -monitor closely, fall precautions -Increased IV fluid rate 125 ml/hr -Type and crossed with 2 units PRBCs held. Plan to transfuse for hemoglobin <8 -Hemoglobin remains stable at 8.9 -We will monitor (3) CAD (coronary artery disease): Stable. No chest pain. Preop 2D echo on 06/13/2028 showed normal left ventricular systolic function with preserved EF of 60%. Continue aspirin, statin and metoprolol succinate with hold parameters (4) Hypertension: Hypotensive in setting of significant blood loss anemia. BP currently 98/66 -Plan to hold lisinopril tomorrow morning. Continue metoprolol succinate with hold parameters (5) Hyperlipidemia: Continue statin (6) Diabetes mellitus, type II: Unknown a1c - pending for tomorrow AM -pt reports A1c below 7 on oral meds -Hold home agents. Post op hgb >200 -Glycemic consult placed -BSG AC HS (7) GERD (gastroesophageal reflux disease): Continue PPI (8) Insomnia: Holding Zaleplon while receiving pain medication post operatively PCP: [place] Dispo: Per primary service Medically stable Admission and Anticipated Discharge Date Admission Date: June 28, 2020 Subjective 06/29/2020 Patient was seen and examined in medical floor He is status post L2-3 decompression and fusion Complains back pain without radiation and denies any other symptoms Review of Systems Review of Systems: All systems reviewed and are unremarkable except as noted below Musculoskeletal: + back pain Physical Exam Physical Exam: Sitting on a chair with some discomfort at the back Constitutional: well developed, well nourished, + acute distress, + ill appearing and + obese Eyes: PERRL, conjunctivae normal, anicteric sclerae ENMT: external ear and nose normal, oropharynx normal Neck: trachea midline, no thyromegaly Respiratory: normal respiratory effort; no respiratory distress Auscultation: lungs clear to auscultation bilaterally Cardiovascular: Rate/Rhythm: regular rate and regular rhythm Heart Sounds: no murmur Gastrointestinal (Abdomen): Inspection/Auscultation: abdomen normal to inspection; abdomen not distended Percussion/Palpation: abdomen soft; abdomen nontender Neurologic: moves all extremities; no focal motor deficits Psychiatric: A+Ox3, euthymic affect Lymphatic: no cervical or axillary lymphadenopathy Results & Data Results & Data ([facility]) Vital Signs (Past 12 Hours) Vital Signs Temp Pulse Resp BP BP Pulse Ox 06/29/20 11:26 37.1 C 76 16 100/67 99 06/29/20 08:35 80 107/66 06/29/20 07:22 36.6 C 68 16 93/53 L 95 06/29/20 03:58 37 C 70 18 101/61 94 Laboratory Results Short CBC 06/28/20 06/29/20 Range/Units 17:02 05:27 WBC 11.75 H (4.8-10.8) K/uL Hgb 10.8 L 8.9 L (14.0-18.0) g/dL Hct 31.8 L 26.8 L (42-52) % Plt Count 208 (130-400) K/uL BMP 06/29/20 05:27 Sodium 140 Potassium 3.8 Chloride 109 H Carbon Dioxide 25 BUN 15 Creatinine 0.84 Glucose 125 H Calcium 8.3 L Medications Administered Current Inpatient Medications Acetaminophen (Acetaminophen 500 Mg Tab) 1,000 mg PO Q8H PRN PRN Reason: MILD Pain Scale 1,2,3 & Pre PT Stop: 07/28/20 11:38 Al Hydrox/Mg Hydrox/Simethicone (Aluminum/Magnesium Susp 30 Ml Udc) 30 ml PO Q6H PRN PRN Reason: Dyspepsia Stop: 07/28/20 11:38 Aspirin (Aspirin 81 Mg Ectab) [facility] [place] Stop: 07/29/20 08:59 Last Admin: 06/29/20 08:36 Dose: 81 mg Documented by: Atorvastatin Calcium (Atorvastatin 40 Mg Tab) 40 mg PO QAM JOSE Stop: 07/29/20 08:59 Last Admin: 06/29/20 08:36 Dose: 40 mg Documented by: Bisacodyl (Bisacodyl 10 Mg Supp) 10 mg WI DAILY PRN PRN Reason: Constipation Stop: 07/28/20 11:38 Cyanocobalamin (Cyanocobalamin 500 Mcg Tablet (Vitamin B-12)) 1,000 mcg PO QAM [facility] Stop: 07/29/20 08:59 Last Admin: 06/29/20 08:36 Dose: 1,000 mcg Documented by: Dextrose (Dextrose 50% 50 Ml Syringe) 25 - 50 ml IV UD PRN; Protocol PRN Reason: Hypoglycemia Protocol Stop: 07/28/20 11:56 Diphenhydramine HCl (Diphenhydramine Hcl 25 Mg Cap) 25 mg PO Q6H PRN PRN Reason: Allergic Rhinitis/Insomnia Stop: 07/28/20 11:38 Famotidine (Famotidine 40 Mg Tablet) 40 mg PO BID [facility] Stop: 07/28/20 20:59 Last Admin: 06/29/20 08:35 Dose: 40 mg Documented by: Finasteride (Finasteride 5 Mg Tab) 5 mg PO QAM [facility] Stop: 07/29/20 08:59 Last Admin: 06/29/20 08:36 Dose: 5 mg Documented by: Glucagon (Glucagon For Inj 1 Mg Vial) 1 mg SQ UD PRN; Protocol PRN Reason: Hypoglycemia Protocol Stop: 07/28/20 11:56 Glucose (Glucose 10 Tabs/Tube) 4 - 8 tabs PO UD PRN; Protocol PRN Reason: Hypoglycemia Protocol Stop: 07/28/20 11:56 Glucose (Glucose 40% Gel 15 Gm Tube) 15 - 30 gm PO UD PRN; Protocol PRN Reason: Hypoglycemia Protocol Stop: 07/28/20 11:56 Hydromorphone HCl (Hydromorphone Inj 0.5 Mg/0.5 Ml Syr) 0.5 mg IV Q3H PRN PRN Reason: MOD pain (scale 4-6) & Pre PT Stop: 07/12/20 11:38 Hydromorphone HCl (Hydromorphone Inj 1 Mg/Ml Syringe) 1 mg IV Q3H PRN PRN Reason: severe pain (scale 7-10) Stop: 07/12/20 11:38 Last Admin: 06/29/20 03:45 Dose: 1 mg Documented by: Hydroxyzine HCl (Hydroxyzine Hcl 25 Mg Tab) 25 mg PO Q8H PRN PRN Reason: Anxiety Stop: 07/28/20 11:38 Lorazepam (Ativan) 0.5 mg in 1 mls @ 0.5 mls/min IV Q8H PRN PRN Reason: Sedation/Anxiety Stop: 07/28/20 11:38 Promethazine HCl 12.5 mg/ (Sodium Chloride) 50.5 mls @ 204 mls/hr IV Q6H PRN PRN Reason: Nausea &/or Vomiting Stop: 07/28/20 11:38 Dexamethasone Sodium Phosphate (8 mg/ Syringe) 2 mls @ 1 mls/min IV DAILY [facility] Stop: 07/30/20 08:59 Influenza Virus Vaccine Quadrival (Do Not Administer Flu Vaccine) 1 ea N/A PRN PRN PRN Reason: Notification Stop: 07/28/20 11:38 Insulin Aspart (Insulin Aspart 100 Units/Ml 3 Ml Pen) 0 units SC ACHS [facility] Stop: 07/28/20 12:59 Last Admin: 06/29/20 12:30 Dose: 9 units Documented by: Insulin Human NPH (Insulin Human Nph) 30 units SC DAILY [facility] Stop: 07/30/20 08:59 Lisinopril (Lisinopril 10 Mg Tab) 10 mg PO QAM [facility] Stop: 07/29/20 08:59 Lorazepam (Lorazepam 0.5 Mg Tab) 0.5 mg PO Q8H PRN PRN Reason: Sedation/Anxiety Stop: 07/28/20 11:38 Magnesium Hydroxide (Magnesium Hydroxide Susp 30 Ml Udc) 30 ml PO DAILY PRN PRN Reason: Constipation Stop: 07/28/20 11:38 Melatonin (Melatonin 3 Mg Tab) 4.5 mg PO HSZ PRN; Protocol PRN Reason: Sleep Stop: 07/28/20 13:12 Last Admin: 06/28/20 23:20 Dose: 4.5 mg Documented by: Metformin HCl (Metformin Hcl 500 Mg Tab) 1,000 mg PO BIDM [facility] Stop: 07/29/20 16:59 Methocarbamol (Methocarbamol 750 Mg Tablet) 750 mg PO QID PRN PRN Reason: Pain Stop: 07/28/20 11:38 Metoclopramide HCl (Metoclopramide Hcl Inj 5 Mg/Ml 2 Ml Vial) 10 mg IV Q6H PRN PRN Reason: Nausea &/or Vomiting Stop: 07/28/20 11:38 Metoprolol Succinate (Metoprolol Succ 25mg Ext Rel Tab) 25 mg PO QAM [facility] Stop: 07/29/20 08:59 Last Admin: 06/29/20 08:39 Dose: 25 mg Documented by: Miscellaneous (Carbohydrates For Hypoglycemia ) 15 - 30 gm PO UD PRN PRN Reason: Hypoglycemia Protocol Stop: 07/28/20 11:56 Miscellaneous Information (Pharmacy Glycemic Mgmt Consult) 1 ea N/A UD PRN PRN Reason: Consult Stop: 07/28/20 12:01 Multivitamins (Multivitamin Tab) [facility] [place] Stop: 07/29/20 08:59 Last Admin: 06/29/20 08:36 Dose: 1 tab Documented by: Multivitamins/Minerals (Calcium 600mg + Vit D 400 Iu Tab) 1 tab PO DAILY [facility] Stop: 07/29/20 08:59 Last Admin: 06/29/20 08:35 Dose: 1 tab Documented by: Naloxone HCl (Naloxone Hcl 0.4 Mg/1 Ml Vial/Carp) 0.1 mg IV Q5M PRN; Protocol PRN Reason: Oversedation/Resp Depression Stop: 07/28/20 11:38 Ondansetron HCl (Ondansetron Inj 2 Mg/Ml 2 Ml Vial) 4 mg IV Q6H PRN PRN Reason: Nausea &/or Vomiting Stop: 07/28/20 11:38 Ondansetron HCl (Ondansetron 4 Mg Od Tab) 4 mg PO Q6H PRN PRN Reason: Nausea Stop: 07/28/20 11:38 Oxycodone HCl (Oxycodone Hcl Ir 5 Mg Tab (Immediate Release)) 5 - 10 mg PO Q4H PRN PRN Reason: Moderate-Severe Pain & Pre PT Stop: 07/12/20 11:38 Last Admin: 06/29/20 14:02 Dose: 10 mg Documented by: Pneumococcal Polyvalent Vaccine (Do Not Administer Pneumococcal Vaccine) 1 ea N/A PRN PRN PRN Reason: Notification Stop: 07/28/20 11:38 Polyethylene Glycol (Polyethylene (Miralax) 17 Gm Pack) 17 gm PO Q6 [facility] Stop: 07/29/20 05:59 Last Admin: 06/29/20 11:43 Dose: 17 gm Documented by: Ranolazine (Ranolazine 500 Mg Er Tab) 500 mg PO BID [facility] Stop: 07/28/20 20:59 Last Admin: 06/29/20 08:35 Dose: 500 mg Documented by: Senna/Docusate Sodium (Docusate Sodium/Senna 50/8.6mg Tab) [address] [facility] Stop: 07/28/20 20:59 Last Admin: 06/28/20 20:14 Dose: 2 tab Documented by: Sitagliptin Phosphate (Sitagliptin Phosphate 25 Mg Tab) 50 mg PO BIDM [facility] Stop: 07/29/20 07:59 Last Admin: 06/29/20 08:37 Dose: 50 mg Documented by: Sodium Biphosphate/Sodium Phosphate (Sod Phosphate/Sod Biphosphate Enema 132 Ml Btl) 132 ml WI ONE PRN PRN Reason: Constipation Stop: 07/28/20 11:38 Tramadol HCl (Tramadol Hcl 50 Mg Tablet) 50 - 100 mg PO Q4H PRN PRN Reason: Moderate-Severe Pain & Pre PT Stop: 07/28/20 11:38 Vitamin E (Tocopheryl, Dl-Alpha 400 Units Cap) 800 units PO QAM [facility]; Protocol Stop: 07/29/20 08:59 Last Admin: 06/29/20 08:35 Dose: 800 units Documented by: Zaleplon (Zaleplon 5 Mg Capsule) [address] [facility] Stop: 07/28/20 20:59 Last Admin: 06/28/20 20:43 Dose: 5 mg Documented by:
[2020-06-29] MEDS: METFORMIN HCL 500 MG TAB PO SCH (17:49)
[2020-06-29] MEDS: DOCUSATE SODIUM/SENNA 50/8.6MG TAB PO SCH (21:12)
[2020-06-29] MEDS ORDERED: COUGH DROP (SUGAR FREE) LOZ 24 LOZ/1 BOX BUCCAL PRN (21:36)
[2020-06-29] MEDS: MELATONIN 3 MG TAB PO PRN (22:01)
[2020-06-30] MEDS: POLYETHYLENE (MIRALAX) 17 GM PACK PO SCH ×3 (06:18→17:41)
[2020-06-30 06:35] LABS: Basophils # (auto) 0.01 K/uL (0-0.2); Basophils % (auto) 0.1 %; Eosinophils # (auto) 0.22 K/uL (0-0.5); Eosinophils % (auto) 2.3 %; Hematocrit (blood only) 24.6 % (42-52); Hemoglobin 8.4 g/dL (14.0-18.0); Immature Granulocytes # (auto) 0.02 K/uL (0.00-0.02); Immature Granulocytes % (auto) 0.2 %; Lymphocytes % (auto) 20.9 %; Mean Corpuscular Hemoglobin 31.6 pg (25-34); Mean Corpuscular Hgb Conc 34.1 g/dL (32-36); Mean Corpuscular Volume 92.5 fL (80-100); Mean Platelet Volume 9.3 fL (7.4-10.4); Monocytes # (auto) 1.14 K/uL (0.11-0.59); Monocytes % (auto) 11.9 %; Neutrophils # (auto) 6.16 K/uL (1.4-6.5); Neutrophils % (auto) 64.6 %; Platelet Count 197 K/uL (130-400); RDW Coefficient of Variation 12.7 % (11.5-14.5); RDW Standard Deviation 43.2 fL (36.4-46.3); Red Blood Count 2.66 M/uL (4.7-6.1); White Blood Count 9.55 K/uL (4.8-10.8)
[2020-06-30] MEDS: TOCOPHERYL, DL-ALPHA 400 UNITS CAP PO SCH (07:19)
[2020-06-30] MEDS: CALCIUM 600MG + VIT D 400 IU TAB PO SCH (07:19)
[2020-06-30] MEDS: ATORVASTATIN 40 MG TAB PO SCH (07:20)
[2020-06-30] MEDS: CYANOCOBALAMIN 500 MCG TABLET (VITAMIN B-12) PO SCH (07:20)
[2020-06-30] MEDS: RANOLAZINE 500 MG ER TAB PO SCH ×2 (07:20→20:25)
[2020-06-30] MEDS: METOPROLOL SUCC 25MG EXT REL TAB PO SCH (07:20)
[2020-06-30] MEDS: MULTIVITAMIN TAB PO SCH (07:20)
[2020-06-30] MEDS: FINASTERIDE 5 MG TAB PO SCH (07:21)
[2020-06-30] MEDS: SITAGLIPTIN PHOSPHATE 25 MG TAB PO SCH ×2 (07:21→17:41)
[2020-06-30] MEDS: METFORMIN HCL 500 MG TAB PO SCH ×2 (07:21→17:41)
[2020-06-30] MEDS: ASPIRIN 81 MG ECTAB PO SCH (07:21)
[2020-06-30] MEDS: FAMOTIDINE 40 MG TABLET PO SCH ×2 (07:21→20:25)
[2020-06-30] MEDS: DEXAMETHASONE SOD PHOSPHATE 8 MG in SYRINGE 0 ML IV SCH (07:22)
[2020-06-30] MEDS: INSULIN ASPART 100 UNITS/ML 3 ML PEN SC SCH ×4 (07:23→20:39)
--- NOTE | 2020-06-30 08:19 | Orthopedic Progress Note ---
Date of Service June 30, 2020 Assessment & Plan (1) Neurogenic claudication due to lumbar spinal stenosis: Admission and Anticipated Discharge Date Admission Date: June 28, 2020 Today we will continue to advance his bowel regiment continue physical therapy and ambulation as tolerated. Subjective Back pain controlled leg symptoms improved struggling with upset stomach secondary to no bowel movement. Physical Exam Physical Exam: Patient is alert and oriented has good strength testing. Results & Data ([facility]) Vital Signs (Past 12 Hours) Vital Signs Temp Pulse Resp BP Pulse Ox 06/30/20 06:55 37 C 75 20 119/73 94 06/29/20 23:46 37.5 C 90 18 94/59 L 93
[2020-06-30] MEDS ORDERED: INSULIN HUMAN NPH SC SCH (09:00)
--- NOTE | 2020-06-30 09:21 | Hospitalist Progress Note ---
Date of Service June 30, 2020 Assessment & Plan (1) S/P spinal surgery: This is a 69-year-old male with PMH of hypertension, CAD, HLD, BPH and other medical problems listed below who is POD#0 s/p L2L3 lumbar decompression and fusion with interbody cage by Dr. Ojeda. -POD#2 s/p L2L3 lumbar decompression and fusion with interbody cage by Dr. Ojeda -Per ortho for pain control, wound care, anticoagulation and activities -Continue incentive spirometry -Complains of minimal pain at the back (2) Acute blood loss anemia: Significant EBL of 1,100ml recorded. Preop hemoglobin of 14.7 with postop hemoglobin 11.5 -Type and crossed with 2 units PRBCs held. Plan to transfuse for hemoglobin <8 -Hemoglobin remains stable at 8.4 (8.9 yesterday) -Continue to monitor (3) CAD (coronary artery disease): Stable. No chest pain. Preop 2D echo on 06/13/2028 showed normal left ventricular systolic function with preserved EF of 60%. Continue aspirin, statin and metoprolol succinate with hold parameters (4) Hypertension: Normotensive. Continue lisinopril and metoprolol succinate with hold parameters (5) Hyperlipidemia: Continue statin (6) Diabetes mellitus, type II: A1c 6.1 -Hold home agents. Post op hgb >200 -Glycemic pharmacy managing -BSG AC HS (7) GERD (gastroesophageal reflux disease): Continue PPI (8) Insomnia: Holding Zaleplon while receiving pain medication post operatively PCP: [place] Dispo: Per primary service Patient seen in collaboration with Dr. Jay. Please see addendum. Admission and Anticipated Discharge Date Admission Date: June 28, 2020 Supervising Physician Co-Signing Physician Notes Attending addendum: The patient was seen and examined in the medical floor Planes to have abdominal discomfort with distention and constipation Denies any other symptoms Examination Moderate distress due to abdominal discomfort Hemodynamically stable Abdomen-distended, soft, tender lower quadrants with positive bowel sounds Labs and imaging studies reviewed Agree With assessment and plan as outlined above by Soila Phipps PA-C Will try glycerin suppository with or without Fleet enema for constipation Dr Emerita jay Subjective Seen and examined in 304-1. Endorsing mild surgical site pain, worse with movement. Denies pain or weakness in lower extremities. Feeling lightheaded when he stands up but not at rest. Having abdominal bloating and no BM yet. Bowel regimen adjusted this morning. Denies fever, chills, headache, visual changes, chest pain, palpitations, shortness of breath, abdominal pain, nausea, vomiting, dysuria or diarrhea. Review of Systems Review of Systems: At least ten systems reviewed and negative except as noted in the HPI. Physical Exam Physical Exam: General Appearance: WD/WN, vitals as above, NAD, sitting up in bed, pleasant, conversing easily Head: normocephalic, atraumatic Eyes: normal inspection, PERRL, conjunctivae normal, anicteric sclerae ENT: external ear and nose normal, oropharynx normal Neck: normal visual inspection, trachea midline, no thyromegaly Respiratory: normal respiratory effort, lungs clear to auscultation, no wheeze, rales, rhonchi Cardiovascular: regular rate, rhythm, no murmur, normal peripheral pulses, no BLE edema Abdomen/GI: normal bowel sounds, soft but distended, nontender, no hepatosplenomegaly Extremities/Musculoskeletal: + LS dressing c/d/i. BETTY drain visualized. No cyanosis or clubbing, extremities motor strength 5/5 Neurologic: PERRL, CN's II-XI intact bilaterally and moves all extremities Psychiatric: A+Ox3, euthymic affect Skin: no rashes, normal color, warm/dry Results & Data Results & Data ([facility]) Vital Signs (Past 12 Hours) Vital Signs Temp Pulse Resp BP Pulse Ox 06/30/20 06:55 37 C 75 20 119/73 94 06/29/20 23:46 37.5 C 90 18 94/59 L 93 Laboratory Results Short CBC 06/30/20 Range/Units 05:24 WBC 9.55 (4.8-10.8) K/uL Hgb 8.4 L (14.0-18.0) g/dL Hct 24.6 L (42-52) % Plt Count 197 (130-400) K/uL
[2020-06-30] MEDS ORDERED: bisacodyL 10 MG SUPP PR STA (11:51)
[2020-06-30] MEDS: DOCUSATE SODIUM/SENNA 50/8.6MG TAB PO SCH (20:25)
[2020-07-01] MEDS: POLYETHYLENE (MIRALAX) 17 GM PACK PO SCH (00:47)
[2020-07-01] MEDS: TOCOPHERYL, DL-ALPHA 400 UNITS CAP PO SCH (08:16)
[2020-07-01] MEDS: MULTIVITAMIN TAB PO SCH (08:17)
[2020-07-01] MEDS: FINASTERIDE 5 MG TAB PO SCH (08:17)
[2020-07-01] MEDS: SITAGLIPTIN PHOSPHATE 25 MG TAB PO SCH (08:17)
[2020-07-01] MEDS: CALCIUM 600MG + VIT D 400 IU TAB PO SCH (08:17)
[2020-07-01] MEDS: METFORMIN HCL 500 MG TAB PO SCH (08:17)
[2020-07-01] MEDS: ASPIRIN 81 MG ECTAB PO SCH (08:17)
[2020-07-01] MEDS: RANOLAZINE 500 MG ER TAB PO SCH (08:18)
[2020-07-01] MEDS: FAMOTIDINE 40 MG TABLET PO SCH (08:18)
[2020-07-01] MEDS: ATORVASTATIN 40 MG TAB PO SCH (08:18)
[2020-07-01] MEDS: METOPROLOL SUCC 25MG EXT REL TAB PO SCH (08:18)
[2020-07-01] MEDS: CYANOCOBALAMIN 500 MCG TABLET (VITAMIN B-12) PO SCH (08:18)
[2020-07-01] MEDS: DEXAMETHASONE SOD PHOSPHATE 8 MG in SYRINGE 0 ML IV SCH (08:19)
[2020-07-01] MEDS: INSULIN ASPART 100 UNITS/ML 3 ML PEN SC SCH (08:22)
--- NOTE | 2020-07-01 08:54 | Hospitalist Progress Note ---
Date of Service July 01, 2020 Assessment & Plan (1) S/P spinal surgery: This is a 69-year-old male with PMH of hypertension, CAD, HLD, BPH and other medical problems listed below who is POD#3 s/p L2L3 lumbar decompression and fusion with interbody cage by Dr. Ojeda. -POD#3 s/p L2L3 lumbar decompression and fusion with interbody cage by Dr. Ojeda -Per ortho for pain control, wound care, anticoagulation and activities -Continue incentive spirometry -Continues to have mild surgical site pain (2) Acute blood loss anemia: Significant EBL of 1,100ml recorded. Preop hemoglobin of 14.7 with postop hemoglobin 11.5 -Type and crossed with 2 units PRBCs held. Plan to transfuse for hemoglobin <8 -Hemoglobin remains stable -Continue to monitor (3) CAD (coronary artery disease): Stable. No chest pain. Preop 2D echo on 06/13/2028 showed normal left ventricular systolic function with preserved EF of 60%. -Continue aspirin, statin and metoprolol succinate with hold parameters (4) Hypertension: Normotensive. Continue lisinopril and metoprolol succinate with hold parameters (5) Hyperlipidemia: Continue statin (6) Diabetes mellitus, type II: A1c 6.1 -Hold home agents. Post op hgb >200 -Glycemic pharmacy managing -BSG AC HS (7) GERD (gastroesophageal reflux disease): Continue PPI (8) Insomnia: Holding Zaleplon while receiving pain medication post operatively PCP: [place] Dispo: Per primary service - possible discharge today Patient seen in collaboration with Dr. Jay. Please see addendum. Admission and Anticipated Discharge Date Admission Date: June 28, 2020 Subjective Seen and examined in 304-1. Feeling better today. Endorsing mild surgical site pain, worse with movement. Denies pain or weakness in lower extremities. Feeling lightheaded when he stands up but not at rest. Abdominal bloating has resolved after multiple bowel movements yesterday. Denies fever, chills, headache, visual changes, chest pain, palpitations, shortness of breath, abdominal pain, nausea, vomiting, dysuria or diarrhea. Review of Systems Review of Systems: At least ten systems reviewed and negative except as noted in the HPI. Physical Exam Physical Exam: General Appearance: WD/WN, vitals as above, NAD, sitting up in bed, pleasant, conversing easily Head: normocephalic, atraumatic Eyes: normal inspection, PERRL, conjunctivae normal, anicteric sclerae ENT: external ear and nose normal, oropharynx normal Neck: normal visual inspection, trachea midline, no thyromegaly Respiratory: normal respiratory effort, lungs clear to auscultation, no wheeze, rales, rhonchi Cardiovascular: regular rate, rhythm, no murmur, normal peripheral pulses, no BLE edema Abdomen/GI: normal bowel sounds, soft, nontender, no hepatosplenomegaly Extremities/Musculoskeletal: + LS dressing c/d/i. BETTY drain visualized. No cyanosis or clubbing, extremities motor strength 5/5 Neurologic: PERRL, CN's II-XI intact bilaterally and moves all extremities Psychiatric: A+Ox3, euthymic affect Skin: no rashes, normal color, warm/dry Results & Data Results & Data ([facility]) Vital Signs (Past 12 Hours) Vital Signs Temp Pulse Resp BP BP Pulse Ox 07/01/20 07:00 36.6 C 82 14 116/69 100 06/30/20 23:21 36.9 C 81 16 128/68 99
[2020-07-01] MEDS ORDERED: INSULIN HUMAN NPH SC SCH (09:00)
--- NOTE | 2020-07-01 10:04 | Discharge Summary ---
Date of Service July 01, 2020 Admission HPI Per Admitting Provider This is a 69-year-old male who presents with chronic persistent back and leg pain. Failed extensive course of nonoperative care is here for surgical invention. Principal Diagnosis Lumbar spinal stenosis with neurogenic claudication Discharge Data Allergies Allergy/AdvReac Type Severity Reaction Status Date / Time Iodinated Contrast Media Allergy Intermediate Hives Verified 06/28/20 12:16 Consultations 06/28/20 11:39 Consult Case Management - Discharge Planning Routine Consult Hospitalist Routine Procedures Performed Operation Date: 06/28/20 07:45 Actual Procedures p L2-L3 Decompression Fusion with Interbody Cage, Spinal Cord Monitoring(Not Applicable) - Matt Ojeda DO s L3-S1 Hardware Removal(Not Applicable) - Matt Ojeda DO Ordered Studies 06/28/20 07:45 FL fluoroscopy <1hr Routine FL lumbar spine 2-3V Routine Hospital Course (1) Neurogenic claudication due to lumbar spinal stenosis: Patient went lumbar decompression fusion tolerated this well was taken to orthopedic for postoperative. Postop day 1 he was up and ambulating progressed to postop day #2 and 3 and subsequently discharged home. Excellent strength testing BETTY drain decreasing probably. Pain well controlled. Orders and discharge instructions given from the chart for further review. Total Time Total Time Spent Total Time Spent (In Minutes): 20 minutes Discharge Plan Discharge Items Patient Disposition: Home - Self-Care Reason For Visit: Spinal Stenosis, Lumbar Region without Neurogenic Discharge Diagnosis: Lumbar spinal stenosis with neurogenic claudication Activity: As commented below Non-emergency contact: Primary Care Provider Call non-emergency contact if: you have any medication questions Follow-up/Referrals: Arias Peter MD [Primary Care Provider] - Diet: Regular Addtl Attending Provider Instructions: ACTIVITY RECOMMENDATIONS: SELF CARE INSTRUCTIONS AFTER THORACIC/LUMBAR FUSIONS 1. You may walk to your tolerance. It is good exercise for your legs and back. Expect some back and intermittent leg aches and pains. 2. You may perform "counter-top" level activities (make a sandwich, samuel with a project, etc.). 3. No bending or lifting of more than 10 pounds or back twisting of any nature (roll like a log when turning in bed). 4. You may ride in a car for 20-30 minutes at a time. No driving until after your first visit with your doctor. 5. Frequent changes of position and restricting sitting to 30 minutes at a time will help limit the amount of back spasms and stiffness you may experience. 6. You may discontinue the use of ambulatory aids (cane, crutches, etc.) once your strength and confidence allow. 7. You may contract administration specialist the shower and let water strike your incision when you arrive home at least once daily. Do not take a tub bath, sit in a hot tub or go into a swimming pool until after your first recheck in the office. SPECIAL CARE INSTRUCTIONS: VERY IMPORTANT TO READ AND REVIEW A. Your surgical incision has been closed with a cosmetic suture under the skin that will dissolve in about 6 weeks. In 14 days, you can use a pair of clean scissors and cut the suture that is left outside of the skin at the ends of your incision. 1. The small skin tapes can be removed 7 days after surgery if they have not fallen off by that point. 2. You may keep the wound open to air as much as possible to promote healing after post-op day number 5 unless told otherwise by your doctor. 3. If you think the wound looks like it is becoming infected (redness or worsening drainage) and/or you are experiencing fever, chill or worsening back pain and muscle spasms, contact the office so that we may evaluate you as soon as possible. B. Complications are uncommon, but please contact us if you have any signs or symptoms of: 1. wound infection (fever higher than 102.5 degrees F, redness, separation of wound, drainage, or increasing pain from the incision) 2. blood clots in legs (pain, swelling, redness and warmth in legs) 3. urinary tract infection (fever higher than 102.5 degrees F, burning upon urination or increased frequency of urination) 4. nerve problems (inability to walk on your toes or heels, numbness, loss of bowel or bladder control) 5. any other symptoms that concern you C. Please call the office at if you have any concerns or questions about your operation or recovery. D. No smoking! Smoking drastically decreases the chance of a solid fusion. E. Do not take any anti-inflammatory medications (Indocin, Advil, Motrin, Aspirin, Naprosyn, etc.) as these may inhibit the chance of a solid fusion. Tylenol is okay to take for pain. MANAGING PAIN AFTER SPINAL SURGERY 1. Narcotic medication is intended for short-term use and will be provided for surgical pain. Surgical pain usually lasts for a period of 4-6 weeks. Narcotic medication includes Percocet, Vicodin, Darvocet, Tylenol #3 or Lortab. 2. Longer-term pain is more appropriately treated with non-narcotic medication such as Tylenol ES. 3. Muscle spasm is not appropriately treated with narcotics. Muscle relaxers such as Soma, Flexeril or Skelaxin can be used along with Tylenol ES. 4. Remember that we all live with some "aches and pains". This is not unusual or uncommon after an injury or as we get older. a. Back pain is expected and may include muscle spasms for 4 to 6 weeks after surgery. The pain should gradually improve. If the pain worsens for no apparent reason, please contact the office. b. Intermittent leg pain may also be experienced and should not be concerned about unless it worsens for no apparent reason. If so, please contact the office. 5. We will provide appropriate medication within the normal guidelines of their prescribed use. We will also be very cautious and aware of potential abuse and extended duration of patients' medication needs. a. Pain medications are for your comfort and to assist with sleep and rest so that the tissue can heal. They are not provided in order to return to normal activity and should not be used through the day. To do so or worsening pain at night can result from ongoing tissue damage and development of tolerance to the prescribed medicine. 6. Please allow 2-3 days to process refills. Prescriptions will not be mailed but must be picked up at the office. FOLLOW UP VISIT: Keep your scheduled follow-up appointment. Any questions, please call the office at . Pending Studies at Discharge: No Stand-Alone Forms: My [employer], Smoking Cessation Medications and DC Order Prescriptions: New tramadol 50 mg tablet 50 mg PO Q6H PRN (Reason: pain, moderate) Qty: 20 RF: 0 oxycodone 5 mg tablet 5 mg PO Q6H PRN (Reason: pain, severe) Qty: 20 RF: 0 Continued atorvastatin 40 mg Tablet 40 mg PO QAM RF: 0 vitamin E 1,000 unit Capsule 1,000 unit PO QAM RF: 0 famotidine 40 mg Tablet 40 mg PO BID RF: 0 calcium carbonate-vitamin D3 600 mg(1,500mg) -200 unit Tablet 1 tab PO DAILY RF: 0 aspirin 81 mg Tablet,Delayed Release (Dr/Ec) 81 mg PO QAM RF: 0 meloxicam 7.5 mg Tablet 7.5 mg PO QAM RF: 0 methocarbamol 750 mg Tablet 750 mg PO QID MDD pa PRN (Reason: Pain) RF: 0 lisinopril 10 mg Tablet 10 mg PO QAM RF: 0 cyanocobalamin (vitamin B-12) 1,000 mcg Tablet, Sublingual 1,000 mcg SUBLINGUAL QAM RF: 0 zaleplon 5 mg Capsule 5 mg PO HS RF: 0 multivitamin Capsule 1 cap PO QAM RF: 0 finasteride 5 mg Tablet 5 mg PO QAM RF: 0 ranolazine 500 mg Tablet Extended Release 12 Hr 500 mg PO BID RF: 0 Janumet 50-1,000 mg Tablet 1 tab PO BID RF: 0 melatonin 5 mg Tablet 5 mg PO HS RF: 0 omega 3-usf-hvy-fish oil [Fish Oil] 1,200 (144-216) mg Capsule 1 cap PO QAM RF: 0 Farxiga 10 mg Tablet 10 mg PO QAM RF: 0 metoprolol succinate 50 mg Capsule,Sprinkle,Er 24hr 25 mg PO QAM RF: 0 Discontinued oxycodone-acetaminophen 5-325 mg Tablet 1 tab PO Q8H PRN (Reason: Pain) RF: 0 Discharge Orders: Discharge Order (Routine); Ordered 07/01/20 Ordered By: Matt Roberts/Other Patient Handouts: Managing Type 2 Diabetes, Managing Diabetes: The A1C Test Admission Data Admit Date/Time: 06/28/20 10:39 Attending Provider: Matt Ojeda Admit Provider: Matt Ojeda Primary Care Provider: Arias Peter Other Providers: Giovani Field ; Snehal Jay
== END 2020-07-01 12:35 | disposition home or self-care (01) | DRG 454 ==
LOC: ASU 06:34 → 3E 10:39

== ENCOUNTER 2022-05-01 06:03 | Inpatient (IN) ==
--- NOTE | 2022-04-26 09:27 | Anesthesiology Consultation ---
Date of Service April 26, 2022 Assessment & Plan (1) Encounter for pre-operative examination: Chart Review Chart Review: Acceptable Risk for Surgery (pending recent cardio visit and preop Covid testing results ) and Patient NOT seen in Pre Admission Testing - Awaiting cardio office note (seen 04/20/22) - Check BSG AM DOS Per nursing assessment 04/26/2022, pt resides in [facility]. Travel only to surrounding counties. No known Covid positive exposures or Covid related symptoms. No known COVID infection in the past 90 days. Patient is fully vaccinated for COVID. Preop Covid testing scheduled 04/27/22= will await results L2-3 decompression and fusion; L3-S1 hardware removal 06/28/20= Done under GA with Grade I view with Souza #2. ETT #7.5. Atraumatic DL x 1. History Surgery Operation Date: 05/01/22 07:45 Proposed Procedures p C4-C5 Anterior Cervical Discectomy and Fusion, C4-C7 Fusion, C6 Corpectomy, Spinal Cord Monitoring - Matt Ojeda DO Height/Weight Height: 5 ft 9 in Weight: 79.379 kg Allergies Allergy/AdvReac Type Severity Reaction Status Date / Time Iodinated Contrast Media Allergy Intermediate Hives Verified 04/26/22 08:35 Medications Home Medications Medication Instructions Recorded Confirmed Last Taken aspirin 81 mg tablet,delayed 81 mg PO QAM 06/07/20 04/26/22 06/28/20 05:30 release atorvastatin 40 mg tablet 40 mg PO QAM 06/07/20 04/26/22 06/28/20 05:30 calcium carbonate 600 mg-vitamin 1 tab PO QAM 06/07/20 04/26/22 06/24/20 D3 5 mcg (200 unit) tablet cyanocobalamin (vitamin B-12) 1,000 mcg sublingual QAM 06/07/20 04/26/22 06/24/20 1,000 mcg sublingual tablet dapagliflozin 10 mg tablet 10 mg PO QAM 06/07/20 04/26/22 06/27/20 08:00 ([facility]) famotidine 40 mg tablet 40 mg PO BID 06/07/20 04/26/22 06/28/20 05:30 finasteride 5 mg tablet 5 mg PO QAM 06/07/20 04/26/22 06/27/20 08:00 lisinopril 10 mg tablet 10 mg PO QAM 06/07/20 04/26/22 06/27/20 08:00 melatonin 5 mg tablet 5 mg PO HS 06/07/20 04/26/22 06/26/20 meloxicam 7.5 mg tablet 7.5 mg PO QAM 06/07/20 04/26/22 Unknown metoprolol succinate 50 mg capsule 25 mg PO QAM 06/07/20 04/26/22 06/28/20 05:30 sprinkle, ext. release 24 hr multivitamin 1 cap PO QAM 06/07/20 04/26/22 06/27/20 08:00 omega 6-bws-ywy-fish oil 1,200 mg 1 cap PO QAM 06/07/20 04/26/22 06/14/20 (144 mg-216 mg) capsule (Fish Oil) ranolazine 500 mg tablet,extended 500 mg PO BID 06/07/20 04/26/22 06/27/20 08:00 release,12 hr (Ranexa) sitagliptin 50 mg-metformin 1,000 1 tab PO BID 06/07/20 04/26/22 06/27/20 08:00 mg tablet (Janumet) vitamin E 670 mg (1,000 unit) 1,000 unit PO QAM 06/07/20 04/26/22 06/26/20 capsule Past Medical History Medical History CAD (coronary artery disease) S/p stent 2012 to LAD Chronic back pain Degenerative disc disease Diabetes mellitus, type II NIDDM GERD (gastroesophageal reflux disease) History of anesthesia reaction Pt reports awareness during shoulder surgery in the past. Hyperlipidemia Hypertension Insomnia Myocardial infarction 1990 (pt unsure of details); 2012- had LAD stent placed Osteoarthritis Past Family History Family History Other Heart disease Hypertension No family history of adverse response to anesthesia Past Surgical History Surgical History History of foot surgery left torn tendon History of heart artery stent in 2012; unknown if stent placed with 1990 [place] History of lumbar fusion L4-L5 x2 (UOC) History of trigger finger both hands Hx of appendectomy Hx of arthroscopic knee surgery x 2 Left knee Hx of cardiac cath Per Dr. Pace (cardio note)- cath 2008 (medical management), 2013 cath (LAD STEFANIE placed). Specifics unknown regarding 1990 [place] Hx of colonoscopy Hx of hand surgery x4 right hand and on thumb Hx of hand surgery left hand Hx of lumbar discectomy Dr Crow ([place]) Hx of repair of right rotator cuff Hx of tonsillectomy Social History Smoking Status: Former smoker tobacco type: cigarettes Do You Dip or Chew Tobacco: No Smoking End Date: 1972 Hx Alcohol Use: Yes alcohol intake frequency: holidays/special occasions only Hx Substance Use: No substance use type: does not use Lab Results Anesthesia Preop Results Results Anesthesia Widget: WBC 8.16 K/uL (4.8-10.8) 03/29/22 Hgb 14.6 g/dL (14.0-18.0) 03/29/22 Hct 43.7 % (42-52) 03/29/22 Plt 264 K/uL (130-400) 03/29/22 Na 140 mmol/L (136-145) 03/29/22 K 4.4 mmol/L (3.5-5.1) 03/29/22 Cl 105 mmol/L (98-107) 03/29/22 CO2 27 mmol/L (21-32) 03/29/22 BUN 15 mg/dl (6-23) 03/29/22 Creat 0.84 mg/dl (0.6-1.4) 03/29/22 Glucose Level 105 mg/dl (70-99(Fasting)) H 03/29/22 PTT 27.3 Seconds (21.0-31.0) 03/29/22 Urine Color Yellow 03/29/22 Urine Appearance Clear (Clear) 03/29/22 Urine pH 5.0 (4.5-7.5) 03/29/22 Urine Specific Junction 1.041 (1.000-1.030) H 03/29/22 Urine Protein Negative (Negative) 03/29/22 Urine Glucose (UA) 3+ (Negative) H 03/29/22 Urine Ketones Trace (Negative) H 03/29/22 Urine Blood Negative (Negative) 03/29/22 Urine Nitrite Negative (Negative) 03/29/22 Urine Bilirubin Negative (Negative) 03/29/22 Urine Urobilinogen Negative (Negative) 03/29/22 Urine Leukocyte Esterase Negative (Negative) 03/29/22 Blood Type O Positive 03/29/22 Antibody Screen NEGATIVE 03/29/22 Testing Laboratory Results 03/29/22= URINE CULTURE: No growth Electrocardiogram Date: 03/29/22 Findings: + NSR @ (67bpm ) Normal EKG per cardio. Chest X-Ray Date: 03/29/22 Findings: + NAD Mild right hemidiaphragmatic elevation. Minimal linear subsegmental atelectasis. Echocardiogram Date: 06/13/20 LV size, wall thickness and systolic function are normal with an EF of 60%. No regional wall motion abnormalities. No significant valve abnormalities. The aortic root is minimally dilated at 37 mm. Cardiac Catheterization Date: 12/16/12 LAD 80%- PTCA and stenting done with STEFANIE- reduced to 0% stenosis. LM= angiographically normal but short vessel. LCX= 20% Ramus= 60% RCA= 20% EF= 55%. No RWMA.
[~2022-05-01 06:03] MED LIST changes: -CEFAZOLIN 2000MG 2,000 MG/15 ML SYR IV SCH; +ceFAZolin 2000MG 2,000 MG/15 ML SYR IV SCH
[2022-05-01] MEDS ORDERED: HYDROmorphone INJ 2 MG/ML SYR/VIAL IV PRN (06:53)
[2022-05-01] MEDS ORDERED: ATROPINE SULFATE 0.1 MG/ML 10ML SYR IV PRN (06:53)
[2022-05-01] MEDS ORDERED: fentaNYL citrate 100 MCG/2 ML VIAL IV PRN (06:53)
[2022-05-01] MEDS ORDERED: ePHEDrine sulfate 50 MG/ML AMP IV PRN (06:53)
[2022-05-01] MEDS ORDERED: ONDANSETRON INJ 2 MG/ML 2 ML VIAL IV PRN ×2 (06:53→11:50)
[2022-05-01] MEDS ORDERED: PROPOFOL IV EMULSION 10 MG/ML 20 ML VIAL IV ONE (06:55)
[2022-05-01] MEDS ORDERED: ONDANSETRON INJ 2 MG/ML 2 ML VIAL ONE ×2 (06:55→08:37)
[2022-05-01] MEDS ORDERED: GLYCOPYRROLATE 0.2 MG/ML VIAL ONE (06:55)
[2022-05-01] MEDS ORDERED: MIDAZOLAM HCL 1 MG/ML 2ML VIAL ONE (06:55)
[2022-05-01] MEDS ORDERED: fentaNYL citrate 100 MCG/2 ML VIAL ONE (06:55)
[2022-05-01] MEDS ORDERED: DEXAMETHASONE SOD INJ 4 MG/ML VIAL ONE (06:55)
[2022-05-01] MEDS ORDERED: NEOSTIGMINE METHYLSULFATE 1 MG/ML 10ML VIAL ONE (06:55)
[2022-05-01] MEDS ORDERED: ceFAZolin 330 MG/ML 1 GM VIAL ONE (07:03)
[2022-05-01] MEDS ORDERED: LARYING-O-JET KIT (LTA) ONE (07:04)
[2022-05-01] MEDS ORDERED: SUCCINYLCHOLINE CHLORIDE 20 MG/ML 10 ML VIAL IV ONE (07:04)
[2022-05-01] MEDS ORDERED: LIDOCAINE 2% 20 MG/ML 5 ML SYR IV ONE ×2 (07:04→09:43)
[2022-05-01] MEDS ORDERED: PROPOFOL IV EMULSION 10 MG/ML 100 ML VIAL IV ONE (07:04)
--- NOTE | 2022-05-01 07:28 | History & Physical Bridge Note ---
Date of Service May 01, 2022 History & Physical Bridge Note I have examined the patient, reviewed the History & Physical and in the interval since the performance of the History & Physical I have noted the following changes of clinical significance: no changes noted
--- NOTE | 2022-05-01 07:29 | History & Physical Report ---
Date of Service May 01, 2022 Assessment & Plan (1) Myelopathy concurrent with and due to spinal stenosis of cervical region: Plan: C4-C5 anterior discectomy and fusion, C4-C7 fusion, C6 corpectomy History of Present Illness Chief Complaint: Neck and arm pain Primary Care Provider: Arias Peter MD This is a 71-year-old male who presents with chronic persistent neck and arm symptoms after failing course of nonoperative care is here for surgical intervention. Allergies Allergy/AdvReac Type Severity Reaction Status Date / Time Iodinated Contrast Media Allergy Intermediate Hives Verified 05/01/22 06:26 Home Medications Medication Instructions Recorded Confirmed Type aspirin 81 mg tablet,delayed 81 mg PO QAM 06/07/20 05/01/22 History release atorvastatin 40 mg tablet 40 mg PO QAM 06/07/20 05/01/22 History calcium carbonate 600 mg-vitamin 1 tab PO QAM 06/07/20 05/01/22 History D3 5 mcg (200 unit) tablet cyanocobalamin (vitamin B-12) 1,000 mcg sublingual QAM 06/07/20 05/01/22 History 1,000 mcg sublingual tablet dapagliflozin 10 mg tablet 10 mg PO QAM 06/07/20 05/01/22 History (Farxiga) famotidine 40 mg tablet 40 mg PO BID 06/07/20 05/01/22 History finasteride 5 mg tablet 5 mg PO QAM 06/07/20 05/01/22 History lisinopril 10 mg tablet 10 mg PO QAM 06/07/20 05/01/22 History melatonin 5 mg tablet 5 mg PO HS 06/07/20 05/01/22 History meloxicam 7.5 mg tablet 7.5 mg PO QAM 06/07/20 05/01/22 History metoprolol succinate 50 mg capsule 25 mg PO QAM 06/07/20 05/01/22 History sprinkle, ext. release 24 hr multivitamin 1 cap PO QAM 06/07/20 05/01/22 History omega 6-upq-whj-fish oil 1,200 mg 1 cap PO QAM 06/07/20 05/01/22 History (144 mg-216 mg) capsule (Fish Oil) ranolazine 500 mg tablet,extended 500 mg PO BID 06/07/20 05/01/22 History release,12 hr (Ranexa) sitagliptin 50 mg-metformin 1,000 1 tab PO BID 06/07/20 05/01/22 History mg tablet (Janumet) vitamin E 670 mg (1,000 unit) 1,000 unit PO QAM 06/07/20 05/01/22 History capsule Past Med/Surg History Medical History CAD (coronary artery disease) S/p stent 2013 to LAD Chronic back pain Degenerative disc disease Diabetes mellitus, type II NIDDM GERD (gastroesophageal reflux disease) History of anesthesia reaction Pt reports awareness during shoulder surgery in the past. Hyperlipidemia Hypertension Insomnia Myocardial infarction 1990 (pt unsure of details); 2012- had LAD stent placed Osteoarthritis Surgical History History of foot surgery left torn tendon History of heart artery stent in 2012; unknown if stent placed with 1990 [place] History of lumbar fusion L4-L5 x2 (U[facility]) History of trigger finger both hands Hx of appendectomy Hx of arthroscopic knee surgery x 2 Left knee Hx of cardiac cath Per Dr. Pace (cardio note)- cath 2008 (medical management), 2013 cath (LAD STEFANIE placed). Specifics unknown regarding 1990 [place] Hx of colonoscopy Hx of hand surgery x4 right hand and on thumb Hx of hand surgery left hand Hx of lumbar discectomy Dr Crow ([place]) Hx of repair of right rotator cuff Hx of tonsillectomy Family History Other Heart disease Hypertension No family history of adverse response to anesthesia Social History Smoking Status: Former smoker Smoking End Date: 1972; Second Hand Exposure: No; Do You Dip or Chew Tobacco: No; Tobacco Cessation Education Requested by Patient: No Hx Alcohol Use: Yes Hx Substance Use: No Preferred Language: Maltese Communication Ability: Effective [employer]ilities Repairer Required: No Beliefs That Will Affect Care: None marital status: Single Current Living Situation: Family Current Living Situation Comment: lives with brother (brother travels frequently for work) Other Information That Helps Us Care for You: No Feels Safe at Home: Yes Safety Concerns: Feels Safe At This Time Assistive Devices: Glasses Physical Exam Physical Exam: Patient is alert and oriented Heart regular rhythm Lungs clear Results & Data Results & Data ([facility]) Vital Signs (Past 12 Hours) Vital Signs Temp Pulse Resp BP Pulse Ox O2 Del Method 05/01/22 06:33 36.7 C 73 18 144/78 H 98 Room Air
[2022-05-01] MEDS ORDERED: FLOSEAL HEMOSTATIC MATRIX 10ML TOP ONE (08:25)
[2022-05-01] MEDS ORDERED: ePHEDrine sulfate 50 MG/ML SYR ONE (08:48)
--- NOTE | 2022-05-01 09:47 | Operative Report ---
Post Operative Report Pre & Post Diagnosis Operation Date: 05/01/22 07:45 Pre-Op Diagnosis: Cervical spinal stenosis with myelopathy Post-Op Diagnosis: Same I identified the patient and participated in the time-out.: Yes Procedure Operation Date: 05/01/22 07:45 Actual Procedures #1 anterior cervical corpectomy with bilateral foraminotomies C6. #2 anterior cervical discectomy with bilateral foraminotomies C4-C5. #3 anterior cervical arthrodesis C4-C5 and C5 5 to C7. #4 placement of 8 mm peek cage C4-C5 and 23 mm cage at C5-C7. #6 placement locally harvested morselized autograft combined with I factor and interbody cages. #6 application of singh plate and screws from C4-C7. Surgeon Matt Ojeda, Husker Operator Nicole Polk Estimated Blood Loss 10 Findings Consistent with Post-Op Diagnosis Specimens None Indications This is a 71-year-old male who presents above-mentioned diagnosis. In light of myelopathy we elected to undergo cervical decompression fusion. Description of Procedure Patient was met with identified informed consent obtained. Patient was then taken to the operative suite underwent a patient placed in a supine position the Tobin table with the head [place] splitter head. All bony prominences well- padded eyes inspected to ensure no external pressure placed upon them. This point the anterior cervical spine was prepped and draped in normal sterile fashion. Longitudinal incision was then placed along the right anterior aspect of the cervical spine from C4-C7. Blunt dissection was then carried out down to and exposing the anterior cervical spine from C4-C7. A self-retaining retractors placed. Then performed a complete discectomy of C5-C6 out to the uncovertebral joints bilaterally followed by C6-C7. [place] distracting pins were then placed in C5 and C7. Then performed a complete corpectomy of C6 including removal of all posterior annular fibers longitudinal ligament bilateral foraminotomies performed. The endplates were then burred to subcortical bleeding bone and 23 mm peek cage filled locally harvested morselized autograft and I factor tapped in position. Distracting apparatus was removed and I proceeded to C4-C5. Again a complete discectomy performed out to the uncovertebral joints bilaterally. [place] distraction pins again utilized. Removed all posterior annular fibers longitudinal ligament bilateral foraminotomies performed. Endplates burred to subcortical being bone and 8 mm peek cage filled locally harvested morselized autograft and I factor tapped in position. Distracting apparatus was removed all anterior osteophytes burred to a smooth cortical surface and a 5 complete and screws applied with the assistance of fluoroscopy. The incision was then copiously irrigated explored to ensure no damage to surrounding structures or remaining bleeding. 10 round BETTY drain inserted. The incision was then closed with 2-0 Vicryl subcutaneously and 4 Monocryl for final skin closure. Steri-Strip sterile dressings placed. Patient waken taken PACU stable condition. Please note spinal cord monitoring was utilized at the procedure no changes noted. Lastly Nicole Polk was present out the entire procedure involved the patient positioning complex portions of the surgery and final skin closure. I attest to the content of the Intraoperative Record and any orders documented therein. Any exceptions are noted below.
--- NOTE | 2022-05-01 10:36 | Fluoroscopy Report ---
FL cervical 2-3V CLINICAL HISTORY: ACDF C4-7 C6 CORPECTOMY COMPARISON STUDY: None. FLUOROSCOPY TIME: 12 seconds. FLUOROSCOPIC IMAGES: 3 FINDINGS: Endotracheal tube is partially imaged. Surgical drain is in place. There are postoperative findings consistent with C6 corpectomy and C4-C7 anterior discectomy and fusion. Hardware is intact. IMPRESSION: Fluoroscopy provided during C6 corpectomy and C4-C7 anterior discectomy and fusion. ACT 112: Negative or not required by law. Electronically signed by: Mohinder Fields M.D. 05/01/2022 10:35 AM
--- NOTE | 2022-05-01 11:27 | Communication Note ---
Date of Service: May 01, 2022 Pt was a glidescope intubation. It was difficult to pass the tube. There appeared to be anterior compression of the airway. Pt cervical problems were at C4-c6 posteriorly. Dr natarajan made aware of recommendation for ent follow up. We reviewed the MRI, but there was distortion in the glotic area. I also spoke with the patient. There was no difficultly with ventilation and we were able to pass a smaller tube (7.0)
--- NOTE | 2022-05-01 11:28 | Anesthesiology Progress Note ---
Date of Service May 01, 2022 Anesthesia Post Procedure Vital Signs Vital Signs: Temp Pulse Pulse Resp BP Pulse Ox O2 Del Method 05/01/22 11:20 75 16 139/84 92 Room Air 05/01/22 11:10 36.2 C L 76 16 140/83 92 Room Air 05/01/22 11:00 74 17 141/53 H 97 Room Air 05/01/22 10:50 68 21 140/78 97 Oxymask 05/01/22 10:40 64 15 142/77 H 95 Oxymask 05/01/22 10:30 71 15 146/85 H 97 Oxymask 05/01/22 10:20 72 20 145/83 H 96 Oxymask 05/01/22 10:10 72 13 135/79 97 Oxymask 05/01/22 10:01 36.1 C L 100 H 20 138/76 97 Oxymask 05/01/22 06:33 36.7 C 73 18 144/78 H 98 Room Air O2 Flow Rate 05/01/22 11:20 05/01/22 11:10 05/01/22 11:00 05/01/22 10:50 5 05/01/22 10:40 5 05/01/22 10:30 9 05/01/22 10:20 9 05/01/22 10:10 9 05/01/22 10:01 9 05/01/22 06:33 Pain Intensity Bilateral Medial Back: Pain Intensity: 4 Transfer of Care Handoff Completed per policy Notes Mental Status: alert / awake / arousable and participated in evaluation Patient Amnestic to Procedure: Yes Nausea / Vomiting: adequately controlled Pain: adequately controlled Airway Patency, RR, SpO2: stable & adequate BP & HR: stable & adequate Hydration State: stable & adequate Anesthetic Complications: no major complications apparent and Pt Satisfied with anesthetic care
[2022-05-01] MEDS: SODIUM CHLORIDE 0.9% 1000ML 1,000 ML IV SCH ×2 (11:45→20:14)
[2022-05-01] MEDS ORDERED: ACETAMINOPHEN 1,000 MG/100 ML VIAL IV PRN (11:50)
[2022-05-01] MEDS ORDERED: ONDANSETRON 4 MG OD TAB PO PRN (11:50)
[2022-05-01] MEDS ORDERED: traMADol HCL 50 MG TABLET PO PRN (11:50)
[2022-05-01] MEDS ORDERED: GLUCAGON FOR INJ 1 MG VIAL SQ PRN (11:50)
[2022-05-01] MEDS ORDERED: HYDROmorphone INJ 1 MG/ML SYRINGE IV PRN (11:50)
[2022-05-01] MEDS ORDERED: PHARMACY GLYCEMIC MGMT CONSULT PRN (11:50)
[2022-05-01] MEDS ORDERED: DEXTROSE 50% 50 ML SYRINGE IV PRN (11:50)
[2022-05-01] MEDS ORDERED: GLUCOSE 10 TAB/TUBE PO PRN (11:50)
[2022-05-01] MEDS ORDERED: hydrOXYzine HCl 25 MG TAB PO PRN (11:50)
[2022-05-01] MEDS ORDERED: PROMETHAZINE HCL 12.5 MG in SODIUM CHLORIDE 0.9% 50 ML IV PRN (11:50)
[2022-05-01] MEDS ORDERED: NALOXONE HCL 0.4 MG/1 ML VIAL/CARP IV PRN (11:50)
[2022-05-01] MEDS ORDERED: METOCLOPRAMIDE HCL INJ 5 MG/ML 2 ML VIAL IV PRN (11:50)
[2022-05-01] MEDS ORDERED: ACETAMINOPHEN 500 MG TAB PO PRN (11:50)
[2022-05-01] MEDS ORDERED: MAGNESIUM HYDROXIDE SUSP 30 ML UDC PO PRN (11:50)
[2022-05-01] MEDS ORDERED: FAMOTIDINE 20 MG TAB PO PRN (11:50)
[2022-05-01] MEDS ORDERED: dexAMETHasone 8 MG in SYRINGE 0 ML IV PRN (11:50)
[2022-05-01] MEDS ORDERED: ALUMINUM/MAGNESIUM SUSP 30 ML UDC PO PRN (11:50)
[2022-05-01] MEDS ORDERED: bisacodyL 10 MG SUPP PR PRN (11:50)
[2022-05-01] MEDS ORDERED: diphenhydrAMINE Capsule 25 MG CAP PO PRN (11:50)
[2022-05-01] MEDS ORDERED: HYDROmorphone INJ 0.5 MG/0.5 ML SYR IV PRN (11:50)
[2022-05-01] MEDS ORDERED: CARBOHYDRATES FOR HYPOGLYCEMIA PO PRN (11:50)
[2022-05-01] MEDS ORDERED: LORazepam 0.5 MG TAB PO PRN (11:50)
[2022-05-01] MEDS ORDERED: SOD PHOSPHATE/SOD BIPHOSPHATE ENEMA 132 ML BTL PR PRN (11:50)
[2022-05-01] MEDS ORDERED: GLUCOSE 40% GEL 15 GM TUBE PO PRN (11:50)
[2022-05-01] MEDS ORDERED: LORazepam 0.5 MG in SYRINGE 0.25 ML IV PRN (11:50)
[2022-05-01] MEDS ORDERED: RACEPINEPHRINE 2.25% NEBU SOLN 0.5 ML VIAL INH PRN (11:50)
[2022-05-01] MEDS ORDERED: CHLORASEPTIC 1.4% SOLN 180 ML BTL MT PRN (12:29)
--- NOTE | 2022-05-01 12:44 | Hospitalist Consultation ---
Date of Consultation May 01, 2022 Assessment & Plan (1) S/P spinal surgery: (2) Diabetes mellitus, type II: (3) Hypertension: (4) Hyperlipidemia: (5) CAD (coronary artery disease): (6) GERD (gastroesophageal reflux disease): (7) Insomnia: Plan This is a 69-year-old male with PMH of hypertension, CAD, HLD, BPH and other medical problems listed below who is POD#0 s/p anterior cervical corpectomy with bilateral foraminotomies C6 and anterior cervical discectomy with bilateral foraminotomies C4-C5 by Dr. Ojeda. S/p cervical spine surgery POD#0 s/p anterior cervical corpectomy with bilateral foraminotomies C6 and anterior cervical discectomy with bilateral foraminotomies C4-C5 by Dr. Ojeda Per ortho for pain control, wound care, anticoagulation and activities Monitor H/H (EBL 10ml, pre-op hgb 14.6) Continue incentive spirometry, PT/OT when appropriate CAD (coronary artery disease) Stable. No chest pain.Continue aspirin, statin and Toprol Hypertension Normotensive. Continue lisinopril, Toprol Hyperlipidemia Continue statin Diabetes mellitus, type II A1c 6.1 in 2020 Hold home agents -Glycemic consult placed by primary service -BSG AC HS GERD (gastroesophageal reflux disease) Continue PPI Insomnia Melatonin HS PCP:[place] Dispo:Per primary service Patient seen in collaboration with Dr. Lal. Please see addendum. Thank you for this consultation. We will follow the patient with you during their hospital stay. You can reach a member of the [facility] Hospitalist Team 22/04 via [place] Text. History of Present Illness Reason for Consultation: Postop medical management Attending Physician: Matt Ojeda DO History of Present Illness This is a 69-year-old male with PMH of hypertension, CAD, HLD, BPH and other medical problems listed below who is POD#0 s/p anterior cervical corpectomy with bilateral foraminotomies C6 and anterior cervical discectomy with bilateral foraminotomies C4-C5 by Dr. Ojeda. Patient having throat pain postoperatively, especially with drinking fluids. Otherwise feeling well. Denies any surgical site pain. No pain or paresthesias of bilateral upper extremity. Denies any fever, chills, congestion, lightheadedness, chest pain, shortness of breath, nausea, vomiting, abdominal pain, dysuria or diarrhea. Has not urinated yet postoperatively. Follows with Dr. Peter for primary care. Allergies Allergy/AdvReac Type Severity Reaction Status Date / Time Iodinated Contrast Media Allergy Intermediate Hives Verified 05/01/22 06:26 Home Medications Medication Instructions Recorded Confirmed Type aspirin 81 mg tablet,delayed 81 mg PO QAM 06/07/20 05/01/22 History release atorvastatin 40 mg tablet 40 mg PO QAM 06/07/20 05/01/22 History calcium carbonate 600 mg-vitamin 1 tab PO QAM 06/07/20 05/01/22 History D3 5 mcg (200 unit) tablet cyanocobalamin (vitamin B-12) 1,000 mcg sublingual QAM 06/07/20 05/01/22 History 1,000 mcg sublingual tablet dapagliflozin 10 mg tablet 10 mg PO QAM 06/07/20 05/01/22 History (Farxiga) famotidine 40 mg tablet 40 mg PO BID 06/07/20 05/01/22 History finasteride 5 mg tablet 5 mg PO QAM 06/07/20 05/01/22 History lisinopril 10 mg tablet 10 mg PO QAM 06/07/20 05/01/22 History melatonin 5 mg tablet 5 mg PO HS 06/07/20 05/01/22 History meloxicam 7.5 mg tablet 7.5 mg PO QAM 06/07/20 05/01/22 History metoprolol succinate 50 mg capsule 25 mg PO QAM 06/07/20 05/01/22 History sprinkle, ext. release 24 hr multivitamin 1 cap PO QAM 06/07/20 05/01/22 History omega 7-ezo-eks-fish oil 1,200 mg 1 cap PO QAM 06/07/20 05/01/22 History (144 mg-216 mg) capsule (Fish Oil) ranolazine 500 mg tablet,extended 500 mg PO BID 06/07/20 05/01/22 History release,12 hr (Ranexa) sitagliptin 50 mg-metformin 1,000 1 tab PO BID 06/07/20 05/01/22 History mg tablet (Janumet) vitamin E 670 mg (1,000 unit) 1,000 unit PO QAM 06/07/20 05/01/22 History capsule oxycodone 5 mg tablet 5 mg PO Q6H PRN pain, severe #30 05/01/22 Rx tabs tramadol 50 mg tablet 50 mg PO Q6H PRN pain, moderate 05/01/22 Rx #30 tabs Patient History Medical History CAD (coronary artery disease) S/p stent 2013 to LAD Chronic back pain Degenerative disc disease Diabetes mellitus, type II NIDDM GERD (gastroesophageal reflux disease) History of anesthesia reaction Pt reports awareness during shoulder surgery in the past. Hyperlipidemia Hypertension Insomnia Myocardial infarction 1990 (pt unsure of details); 2013- had LAD stent placed Osteoarthritis Surgical History History of foot surgery left torn tendon History of heart artery stent in 2012; unknown if stent placed with 1990 ND History of lumbar fusion L4-L5 x2 ([facility]) History of trigger finger both hands Hx of appendectomy Hx of arthroscopic knee surgery x 2 Left knee Hx of cardiac cath Per Dr. Pace (cardio note)- cath 2008 (medical management), 2012 cath (LAD STEFANIE placed). Specifics unknown regarding 1990 ND Hx of colonoscopy Hx of hand surgery x4 right hand and on thumb Hx of hand surgery left hand Hx of lumbar discectomy Dr Crow ([place]) Hx of repair of right rotator cuff Hx of tonsillectomy Family History Other Heart disease Hypertension No family history of adverse response to anesthesia Social History Smoking Status: Former smoker Smoking End Date: 1972; Second Hand Exposure: No; Do You Dip or Chew Tobacco: No; Tobacco Cessation Education Requested by Patient: No Hx Alcohol Use: Yes Hx Substance Use: No Preferred Language: Uzbek Communication Ability: Effective Environmental Quality Analyst Required: No Beliefs That Will Affect Care: None marital status: Single Current Living Situation: Family Current Living Situation Comment: lives with brother (brother travels frequently for work) Other Information That Helps Us Care for You: No Feels Safe at Home: Yes Safety Concerns: Feels Safe At This Time Assistive Devices: Glasses Review of Systems Review of Systems: At least ten systems reviewed and negative except as noted in the HPI. Physical Exam Physical Exam: General Appearance: WD/WN, vitals as above, NAD, sitting up in bed, pleasant, conversing easily Head: normocephalic, atraumatic Eyes: normal inspection, PERRL, conjunctivae normal, anicteric sclerae ENT: external ear and nose normal, oropharynx normal Neck: normal visual inspection, surgical dressing c/d/i. + C collar in place. Drain visualized Respiratory: normal respiratory effort, lungs clear to auscultation, no wheeze, rales, rhonchi. No accessory muscle use Cardiovascular: regular rate, rhythm, no murmur, normal peripheral pulses, no BLE edema. Vessels: no JVD Abdomen/GI: normal bowel sounds, soft, nontender, no hepatosplenomegaly Extremities/Musculoskeletal: no cyanosis or clubbing, extremities motor strength 5/5 Neurologic: PERRL, CN's II-XI intact bilaterally and moves all extremities Psychiatric: A+Ox3, euthymic affect Skin: no rashes, normal color, warm/dry Results & Data Results & Data ([facility]) Vital Signs (Past 12 Hours) Vital Signs Temp Pulse Pulse Resp BP Pulse Ox Pulse Ox 05/01/22 12:33 36.5 C 82 16 132/77 96 05/01/22 11:30 95 05/01/22 11:30 05/01/22 12:00 36.4 C L 79 16 149/81 H 95 05/01/22 11:30 36.5 C 76 16 151/73 H 95 05/01/22 11:45 76 16 95 05/01/22 11:20 75 16 139/84 92 05/01/22 11:10 36.2 C L 76 16 140/83 92 05/01/22 11:00 74 17 141/53 H 97 05/01/22 10:50 68 21 140/78 97 05/01/22 10:40 64 15 142/77 H 95 05/01/22 10:30 71 15 146/85 H 97 05/01/22 10:20 72 20 145/83 H 96 05/01/22 10:10 72 13 135/79 97 05/01/22 10:01 36.1 C L 100 H 20 138/76 97 05/01/22 06:33 36.7 C 73 18 144/78 H 98 O2 Del Method O2 Del Method O2 Flow Rate O2 Flow Rate 05/01/22 12:33 Nasal Cannula 2 05/01/22 11:30 Nasal Cannula 2 05/01/22 11:30 Nasal Cannula 2 05/01/22 12:00 Nasal Cannula 2 05/01/22 11:30 Nasal Cannula 2 05/01/22 11:45 Nasal Cannula 2 05/01/22 11:20 Room Air 05/01/22 11:10 Room Air 05/01/22 11:00 Room Air 05/01/22 10:50 Oxymask 5 05/01/22 10:40 Oxymask 5 05/01/22 10:30 Oxymask 9 05/01/22 10:20 Oxymask 9 05/01/22 10:10 Oxymask 9 05/01/22 10:01 Oxymask 9 05/01/22 06:33 Room Air
[2022-05-01] MEDS ORDERED: INSULIN HUMAN NPH SC STA (13:01)
--- NOTE | 2022-05-01 13:20 | Pharmacy Report ---
Pharmacy Glycemic Short Note 2 - Date of Service May 01, 2022 - Glycemic Short BSG Results (Last 24 hours): 05/01/22 05/01/22 05/01/22 06:26 10:06 12:14 POC Glucose 125 H 151 H 156 H OUTPATIENT ANTIDIABETIC REGIMEN: * Janumet 50-1000 mg PO BIDM * Farxiga 10 mg PO AM * HbA1c pending ASSESSMENT: * 71 yo M admitted s/p spinal discectomy and fusion. Pharmacy has been consulted to assist with inpatient glycemic management. * Patient did receive 8 mg IV dexamethasone intraoperatively. Will continue on 6 mg IV dexamethasone x 3 days starting tomorrow morning. Ordered a full liquid diet at this time. * Pre-op BSG was 125 mg/dL. Intra-op BSG was 151 mg/dL. Post-op BSG was 156 mg/dL. * Will start NPH at 0.4 units/kg while on dexamethasone. Will start Novolog based on weight/stress of 3. PLAN FOR INPATIENT GLYCEMIC CONTROL: * Hold outpatient oral diabetes medications * Basal insulin * Lantus 30 units SC x 1 * Bolus insulin * NovoLog per scale ACHS or Q6hrs while NPO * Goal Range: Low 110 mg/dL - High 140 mg/dL * Correction Factor: 20 mg/dL/unit * Nutritional / Prandial insulin per carb ratio of 1 unit per 6 grams CHO consumed
[2022-05-01] MEDS: INSULIN ASPART PER UNIT SC SCH ×3 (14:36→21:06)
[2022-05-01] MEDS: oxyCODONE HCL IR 5 MG TAB (IMMEDIATE RELEASE) PO PRN ×2 (16:33→22:04)
[2022-05-01] MEDS: ceFAZolin 2000MG 2,000 MG/15 ML SYR IV SCH ×2 (16:35→23:06)
[2022-05-01] MEDS: DOCUSATE SODIUM/SENNA 50/8.6MG TAB PO SCH (21:03)
[2022-05-01] MEDS: FAMOTIDINE 40 MG TABLET PO SCH (21:03)
[2022-05-01] MEDS: RANOLAZINE 500 MG ER TAB PO SCH (21:03)
[2022-05-01] MEDS: MELATONIN 3 MG TAB PO SCH (22:05)
[2022-05-02] MEDS: oxyCODONE HCL IR 5 MG TAB (IMMEDIATE RELEASE) PO PRN ×3 (05:13→15:43)
[2022-05-02] MEDS: POLYETHYLENE (MIRALAX) 17 GM PACK PO SCH ×4 (05:13→23:29)
[2022-05-02 07:12] LABS: Hematocrit (blood only) 36.8 % (40.1-51.0); Hemoglobin 12.3 g/dl (14.0-18.0); Mean Corpuscular Hemoglobin 31.2 pg (25.0-34.0); Mean Corpuscular Hgb Conc 33.4 g/dL (32.0-36.0); Mean Corpuscular Volume 93.4 fL (80.0-100.0); Mean Platelet Volume 9.2 fL (9.4-12.4); Platelet Count 223 K/uL (130-400); RDW Coefficient of Variation 12.4 % (11.5-14.5); RDW Standard Deviation 42.7 fL (36.4-46.3); Red Blood Count 3.94 M/uL (4.63-6.08); White Blood Count 10.58 K/ul (4.8-10.8)
[2022-05-02 07:25] LABS: Estimated Average Glucose 137 mg/dl; Hemoglobin A1C 6.4 % (4.5-5.6)
[2022-05-02 07:33] LABS: BUN Creatinine Ratio 10.7 (10-20); Calcium 8.7 mg/dl (8.5-10.1); Est GFR (African American) 108.5 ml/min; Est GFR (Non-African American) 93.6 ml/min; Potassium 3.9 mmol/L (3.5-5.1)
[2022-05-02] MEDS: CYANOCOBALAMIN (B-12) 500 MCG TABLET PO SCH (08:19)
[2022-05-02] MEDS: METOPROLOL SUCC 25MG EXT REL TAB PO SCH (08:19)
[2022-05-02] MEDS: CALCIUM 600MG + VIT D 400 IU TAB PO SCH (08:19)
[2022-05-02] MEDS: ASPIRIN 81 MG ECTAB PO SCH (08:19)
[2022-05-02] MEDS: FINASTERIDE 5 MG TAB PO SCH (08:19)
[2022-05-02] MEDS: RANOLAZINE 500 MG ER TAB PO SCH ×2 (08:19→21:21)
[2022-05-02] MEDS: MULTIVITAMIN TAB PO SCH (08:19)
[2022-05-02] MEDS: ATORVASTATIN 40 MG TAB PO SCH (08:19)
[2022-05-02] MEDS: FAMOTIDINE 40 MG TABLET PO SCH ×2 (08:19→21:20)
[2022-05-02] MEDS: lisinopril 10 MG TAB PO SCH (08:19)
[2022-05-02] MEDS: dexAMETHasone 6 MG in SYRINGE 0 ML IV SCH (08:20)
[2022-05-02] MEDS: INSULIN ASPART PER UNIT SC SCH ×4 (08:32→21:21)
[2022-05-02] MEDS: INSULIN HUMAN NPH SC SCH (08:34)
--- NOTE | 2022-05-02 08:35 | Pharmacy Report ---
Pharmacy Glycemic Short Note 2 - Date of Service May 02, 2022 - Glycemic Short BSG Results (Last 24 hours): 05/01/22 05/01/22 05/01/22 10:06 12:14 17:23 Glucose POC Glucose 151 H 156 H 224 H 05/01/22 05/02/22 05/02/22 21:00 06:23 08:16 Glucose 116 H POC Glucose 175 H 92 OUTPATIENT ANTIDIABETIC REGIMEN: * Janumet 50-1000 mg PO BIDM * Farxiga 10 mg PO AM * HbA1c pending ASSESSMENT: 05/02: * Paramjit received a total of 53 units of insulin yesterday (30 units NPH + 23 units Novolog). BSGs were: 030-712-904-224-175 mg/dL. * Fasting BSG below goal at 92 mg/dL. Given patient remains on IV dexamethasone, will continue with same NPH dose to cover for steroid-induced hyperglycemia. * No change to Novolog parameters at this time. 05/01: * 71 yo M admitted s/p spinal discectomy and fusion. Pharmacy has been consulted to assist with inpatient glycemic management. * Patient did receive 8 mg IV dexamethasone intraoperatively. Will continue on 6 mg IV dexamethasone x 3 days starting tomorrow morning. Ordered a full liquid diet at this time. * Pre-op BSG was 125 mg/dL. Intra-op BSG was 151 mg/dL. Post-op BSG was 156 mg/dL. * Will start NPH at 0.4 units/kg while on dexamethasone. Will start Novolog based on weight/stress of 3. PLAN FOR INPATIENT GLYCEMIC CONTROL: * Hold outpatient oral diabetes medications * Basal insulin * Lantus 30 units SC daily (to be given with Dexamethasone - hold if dexamethasone held/discontinued) * Bolus insulin * NovoLog per scale ACHS or Q6hrs while NPO * Goal Range: Low 110 mg/dL - High 140 mg/dL * Correction Factor: 20 mg/dL/unit * Nutritional / Prandial insulin per carb ratio of 1 unit per 6 grams CHO consumed
[2022-05-02] MEDS ORDERED: INSULIN HUMAN NPH SC SCH (09:00)
--- NOTE | 2022-05-02 09:35 | Orthopedic Progress Note ---
Date of Service May 02, 2022 Assessment & Plan (1) Myelopathy concurrent with and due to spinal stenosis of cervical region: Plan: At this time continue to encourage ambulation. He may remove his collar when in seated in a chair and eating. We will monitor his BETTY output hopefully discharge home tomorrow. Admission and Anticipated Discharge Date Admission Date: May 01, 2022 Subjective Patient's neck pain is controlled. He has no numbness or tingling in arms or legs. Physical Exam Physical Exam: On exam he is constricted testing upper extremities. Appears comfortable. Results & Data ([facility]) Vital Signs (Past 12 Hours) Vital Signs Temp Pulse Pulse Resp BP Pulse Ox O2 Del Method 05/02/22 07:08 75 18 97 Room Air 05/02/22 06:42 36.8 C 71 16 124/74 93 Room Air 05/02/22 05:00 36.7 C 71 14 127/70 94 Room Air 05/02/22 03:00 36.7 C 76 14 120/76 93 Room Air 05/02/22 02:47 70 91 Room Air 05/02/22 00:59 36.6 C 75 14 124/72 94 Room Air 05/01/22 23:12 79 16 93 Room Air 05/01/22 23:00 36.6 C 81 15 122/77 93 Room Air
[2022-05-02] MEDS ORDERED: COUGH DROP (SUGAR FREE) LOZ 24 LOZ/1 BOX BUCCAL ONE (15:41)
[2022-05-02] MEDS: DOCUSATE SODIUM/SENNA 50/8.6MG TAB PO SCH (21:20)
[2022-05-02] MEDS: MELATONIN 3 MG TAB PO SCH (21:21)
[2022-05-03] MEDS: POLYETHYLENE (MIRALAX) 17 GM PACK PO SCH (05:45)
--- NOTE | 2022-05-03 08:25 | Discharge Summary ---
Date of Service May 03, 2022 Admission HPI Per Admitting Provider This is a 71-year-old male who presents with chronic persistent neck and arm symptoms after failing course of nonoperative care is here for surgical intervention. Principal Diagnosis Cervical spinal stenosis with myelopathy Discharge Data Allergies Allergy/AdvReac Type Severity Reaction Status Date / Time Iodinated Contrast Media Allergy Intermediate Hives Verified 05/01/22 06:26 Consultations 05/01/22 11:50 Consult Hospitalist Routine Procedures Performed Operation Date: 05/01/22 07:45 Actual Procedures p C4-C5 Anterior Cervical Discectomy and Fusion, C4-C7 Fusion, C6 Corpectomy, Spinal Cord Monitoring - Matt Ojeda DO Ordered Studies 05/01/22 07:45 FL cervical 2-3V Routine Hospital Course (1) Myelopathy concurrent with and due to spinal stenosis of cervical region: Patient 1 anterior cervical corpectomy and fusion tolerated this well was taken orthopedic for postoperative. Postop day 1 he was up and ambulating well. No hoarseness. Excellent strength testing. Balance improving progressed to postop day #2. Subsequently discharged home. Discharge orders instructions from the chart review. Total Time Total Time Spent Total Time Spent (In Minutes): 20 minutes Discharge Plan Discharge Items Patient Disposition: Home - Self-Care Reason For Visit: Spinal Stenosis, Cervical Region Discharge Diagnosis: Cervical spinal stenosis with myelopathy Activity: As commented below Non-emergency contact: Primary Care Provider Call non-emergency contact if: you have any medication questions Follow-up/Referrals: Arias Peter MD [Primary Care Provider] - Diet: Regular Addtl Attending Provider Instructions: ACTIVITY RECOMMENDATIONS: SELF CARE INSTRUCTIONS AFTER CERVICAL FUSIONS 1. No smoking. Smoking drastically decreases the chance of a solid fusion. 2. No bending, lifting more than 5 pounds, or twisting (roll like a log when turning in bed). 3. You may shower 3 days after surgery. Thoroughly dry wound. Do not soak in the tub. 4. Cervical collar: Must be worn at all times including sleeping. You may remove the brace only to bath, eat and if you are sitting in a recliner. 5. Please walk as much as you can for exercise. Gradually increase the distance that you walk as your endurance increases. SPECIAL CARE INSTRUCTIONS: VERY IMPORTANT TO READ AND REVIEW A. Do not take any anti-inflammatory medications (i.e. Indocin, Advil, Aspirin, Naprosyn, Aleve, Motrin, etc.) as these may inhibit the chance of a solid fusion. Tylenol is okay to take. B. Your surgical incision has been closed with a cosmetic suture under the skin that will dissolve in about 6 weeks. In 14 days, you can use a pair of clean scissors and cut the suture that is left outside of the skin at the ends of your incision. C. Complications are uncommon, but please contact us if you have any signs or symptoms of: 1. wound infection (fever higher than 102.5 degrees F, redness, separation of wound, drainage, or increasing pain from the incision) 2. blood clots in legs (pain, swelling, redness and warmth in legs) 3. urinary tract infection (fever higher than 102.5 degrees, burning upon urination or increased frequency of urination) 4. nerve problems (inability to walk on your toes or heels, numbness, loss of bowel or bladder control) 5. any other symptoms that concern you. D. Please call the office at if you have any concerns or questions about your operation or recovery. MANAGING PAIN AFTER SPINAL SURGERY 1. Narcotic medication is intended for short-term use and will be provided for surgical pain. Surgical pain usually lasts for a period of 4-6 weeks. Narcotic medication includes Percocet, Vicodin, Darvocet, Tylenol #3 or Lortab. 2. Longer-term pain is more appropriately treated with non-narcotic medication such as Tylenol ES. 3. Muscle spasm is not appropriately treated with narcotics. Muscle relaxers such as Soma, Flexeril or Skelaxin can be used along with Tylenol ES. 4. Remember that we all live with some "aches and pains". This is not unusual or uncommon after an injury or as we get older. 5. We will provide appropriate medication within the normal guidelines of their prescribed use. We will also be very cautious and aware of potential abuse and extended duration of patients' medication needs. 6. Please allow 2-3 days to process refills. Prescriptions will not be mailed but must be picked up at the office. FOLLOW UP VISIT: Keep your scheduled follow-up appointment. Any questions, please call the office at . Pending Studies at Discharge: No Stand-Alone Forms: [facility], Smoking Cessation Medications and DC Order Prescriptions: New tramadol 50 mg tablet 50 mg PO Q6H PRN (Reason: pain, moderate) Qty: 30 0RF oxycodone 5 mg tablet 5 mg PO Q6H PRN (Reason: pain, severe) Qty: 30 0RF Continued atorvastatin 40 mg Tablet 40 mg PO QAM vitamin E 1,000 unit Capsule 1,000 unit PO QAM famotidine 40 mg Tablet 40 mg PO BID calcium carbonate-vitamin D3 600 mg(1,500mg) -200 unit Tablet 1 tab PO QAM aspirin 81 mg Tablet,Delayed Release (Dr/Ec) 81 mg PO QAM meloxicam 7.5 mg Tablet 7.5 mg PO QAM lisinopril 10 mg Tablet 10 mg PO QAM cyanocobalamin (vitamin B-12) 1,000 mcg Tablet, Sublingual 1,000 mcg SUBLINGUAL QAM multivitamin Capsule 1 cap PO QAM finasteride 5 mg Tablet 5 mg PO QAM ranolazine [Ranexa] 500 mg Tablet Extended Release 12 Hr 500 mg PO BID Janumet 50-1,000 mg Tablet 1 tab PO BID melatonin 5 mg Tablet 5 mg PO HS omega 6-lyp-nme-fish oil [Fish Oil] 1,200 (144-216) mg Capsule 1 cap PO QAM Farxiga 10 mg Tablet 10 mg PO QAM metoprolol succinate 50 mg Capsule,Sprinkle,Er 24hr 25 mg PO QAM Discharge Orders: Discharge Order (Routine); Ordered 05/03/22 Ordered By: Matt Ojeda Admission Data Admit Date/Time: 05/01/22 09:51 Attending Provider: Matt Ojeda Admit Provider: Matt Ojeda Primary Care Provider: Arias Peter Other Providers: Ruby Ortega ; Snehal Jay
[2022-05-03] MEDS: INSULIN ASPART PER UNIT SC SCH (08:29)
[2022-05-03] MEDS: MULTIVITAMIN TAB PO SCH (08:31)
[2022-05-03] MEDS: RANOLAZINE 500 MG ER TAB PO SCH (08:32)
[2022-05-03] MEDS: METOPROLOL SUCC 25MG EXT REL TAB PO SCH (08:32)
[2022-05-03] MEDS: ATORVASTATIN 40 MG TAB PO SCH (08:32)
[2022-05-03] MEDS: dexAMETHasone 6 MG in SYRINGE 0 ML IV SCH (08:32)
[2022-05-03] MEDS: FAMOTIDINE 40 MG TABLET PO SCH (08:33)
[2022-05-03] MEDS: lisinopril 10 MG TAB PO SCH (08:33)
[2022-05-03] MEDS: FINASTERIDE 5 MG TAB PO SCH (08:33)
[2022-05-03] MEDS: CYANOCOBALAMIN (B-12) 500 MCG TABLET PO SCH (08:33)
[2022-05-03] MEDS: INSULIN HUMAN NPH SC SCH (08:34)
[2022-05-03] MEDS: CALCIUM 600MG + VIT D 400 IU TAB PO SCH (11:05)
[2022-05-03] MEDS: ASPIRIN 81 MG ECTAB PO SCH (11:05)
== END 2022-05-03 11:47 | disposition home or self-care (01) | DRG 472 ==
LOC: ASU 06:03 → 3E 09:51